=== PATIENT | female | born 1955 | race Caucasian/White ===

== ENCOUNTER 2023-01-11 13:15 | Outpatient (AMB) | payer MEDICARE, SELFPAY ==
--- NOTE | 2023-01-11 13:18 | A.OFFVIS_ITS ---
Intake Vital Signs 3 01/11/23 13:21 Height 4 ft 11 in Weight 195 lb BMI 39.4 BP 122/64 Blood Pressure Location Rt brachial Position Sitting Pulse 70 Pulse Source Pulse Oximeter Pulse Oximetry (%) 95 Oxygen Delivery Method Room Air Intake Visit Reasons: Dyspnea Furniture Polisher Required: No Private Tutors And Teachers: Private Tutors And Teachers offered & declined Accompanied by: Self / Same As Patient Allergies codeine Allergy (Severe, Verified 01/11/23 13:27) trouble breathing Imitrex Allergy (Severe, Uncoded 01/11/23 13:27) Anaphylaxis Medication List - Last Reconciled 01/11/23 by Anita Montiel LPN albuterol sulfate 2.5 mg inhalation Q6H PRN amlodipine 5 mg PO DAILY aspirin (Adult Aspirin Regimen) 81 mg PO DAILY atenolol 25 mg PO DAILY budesonide 180 mcg/actuation (Pulmicort Flexhaler) 2 inhalations inhalation BID citalopram 40 mg PO DAILY ezetimibe 10 mg PO DAILY hydrochlorothiazide 25 mg PO DAILY omeprazole 20 mg PO DAILY ropinirole 1 mg PO DAILY HPI Dyspnea 2 HPI0 Details Lucy is a pleasant 67 year old female, never smoker, with underlying GERD, HUMBERTO on CPAP, hypertension and coronary artery disease. She was referred by PCP for pulmonary evaluation after persistent cough and wheezing. She states these symptoms started at the end of July after a viral URI. She reports being evaluated multiple times at urgent care and the ED. She was evaluated in the ED at [facility] on 11/18/22 for dyspnea and wheezing, treated with duoneb and prednisone with significant improvement. CXR unremarkable. PCP did refer for PFT but patient unable to complete due to coughing fits, spirometry below. PCP placed her on pulmicort and albuterol MDI about 6 weeks ago with suboptimal effect. She states coughing has resolved but still with dyspnea on exertion, such a hills and stairs and takes longer to recover. She denies any personal history of respiratory conditions. Her mother and sister have a history of asthma. Denies any personal or family history of lung cancer. She denies any occupational exposures. She denies seasonal allergies. She has a h/o HUMBERTO and has been on CPAP x 40 years. She is under the care of [facility] sleep medicine and her [employer] company is [employer]. Of note, she does report BLE edema, denies orthopnea and states an echo from approximately 3 years ago revealed mild cardiac insufficiency. She is currently under the care of cardiology at [facility] and is supposed to have a repeat echo in the near future. [facility] Social History (Updated 01/11/23 @ 13:31 by Anita Montiel LPN) Patient Tobacco Use Status: Never used Tobacco Review of Systems Const Denies chills, Denies excessive sweating, Denies fever(s), Denies headache(s) and Denies night sweats Eyes Denies dry eyes, Denies irritation and Denies itchy eyes ENT Reports Normal hearing present, Denies headache(s), Denies nasal congestion, Denies nasal discharge, Denies post nasal drip and Denies sore throat Card Denies chest pain, Denies chest pain at rest, Denies chest pain with activity, Denies claudication, Reports leg edema, Reports dyspnea on exertion, Denies orthopnea and Denies paroxysmal nocturnal dyspnea Resp Denies chest congestion, Denies cough, Denies excessive phlegm production, Denies pain on inspiration, Denies pain with cough, Reports dyspnea on exertion, Denies stridor and Denies wheezing Musc Denies myalgias Neuro Reports Normal hearing present and Denies headache(s) Endo Denies excessive sweating Berny/Lymph Denies lymphadenopathy Aller/Immun Denies itchy eyes, Denies seasonal rhinorrhea and Denies wheezing Physical Exam Vital Signs: Last Vital Signs Pulse 70 01/11/23 13:21 BP 122/64 01/11/23 13:21 Pulse Ox 95 01/11/23 13:21 Oxygen Delivery Method Room Air 01/11/23 13:21 BMI result Body Mass Index 39.4 Const General: cooperative, healthy appearing, comfortable, no acute distress, well developed and alert Nutritional Appearance: obese Orientation/consciousness: patient oriented x3 Limitations: no limitations HEENT Head: Yes normal to inspection, Yes normocephalic and Yes atraumatic Ears: hearing grossly normal bilaterally and external ears normal Eyes General: appearance normal, both eyes and all related structures Eyelids: Yes eyelids normal Sclerae: sclerae normal EOM: EOMs intact bilaterally Neck Neck: Yes normal visual inspection and Yes no lymphadenopathy Lymphatic: no lymphadenopathy noted Chest Chest palpation & inspection: normal inspection of the chest Resp Effort & Inspection: normal respiratory effort, able to speak in complete sentences, no audible wheezes, no cough, no stridor, not tachypneic, no tripod positioning and no use of accessory muscles Auscultation: clear to auscultation bilaterally Cardio Jugular venous distension: no JVD Rate: regular rate Rhythm: regular rhythm Skin Other: warm, dry General skin exam: no rashes or lesions noted Neuro General: patient oriented x3 Cranial nerves: Yes Normal hearing present Cognition (Neuro): normal cognition Gait exam (Neuro): Normal gait present Extrem Other: 1-2+ pitting BLE, R>L with erythema and warmth of the RLE. reportedly US negative for DVT, awaiting referral to vascular. General: Yes normal to inspection and Yes capillary refill normal Psych Appearance: grossly normal and well kempt Speech and movement: Normal speech and movement present and Clear speech present Affect: normal affect Attitude: cooperative Thought process: Normal thought process present Thought content: Normal thought content present Insight: Good insight present (Psych) Judgement: Good judgement present (Psych) Office Procedures 6 Minute Walk Time:: 14:08 SPO2 % at rest: 95 Pulse at rest: 60 SPO2 % during excercise: 92 Pulse during excercise: 78 SPO2 % after excercise: 95 Pulse after excercise: 69 Distance in yards walked: 1,500 Jeff Score: 8 Supplemental Oxygen: Patient walked unassisted on level ground. Patient maintained O2 saturation at 92% or greater for the entire walk. She was short of breath for much of the walk and patient reports this happens when she walks anytime. Patient did not require the use of supplemental O2 during the 6 minute walk. 73392 - 6 Minute Walk Results Reviewed Results Reviewed: Assessment & Plan Assessment & Plan (1) Asthma: Code(s): J45.909 - Unspecified asthma, uncomplicated (2) Dyspnea on exertion: Code(s): R06.09 - Other forms of dyspnea Plan Lucy's symptoms are likely multifactorial with contribution from pulmonary and deconditioning/obesity etiologies. Spirometry revealed mild restrictive defect and significant response to bronchodilation but patient had difficulty performing spirometry and could not continue with lung volumes or DLCO due to persistent cough. Patient now with improvements in cough and would like to attempt PFT again. Will enter this order. 6MWT was performed and there is no need for supplemental oxygen at this time. Patient has been on Pulmicort for the past 6 weeks with resolution in cough but still with suboptimal response. Will switch to Breo. Importance of oral hygiene reviewed. Patient aware if she is unable to obtain medication to contact our office. All questions were answered and patient is in agreement of plan. Will follow up to review results of PFT and response to Breo. Orders: Orders 2 AMB 6 minute walk Today J45.909 - Unspecified asthma, uncomplicated, R06.09 - Other forms of dyspnea PFT pulmonary function test Today J45.909 - Unspecified asthma, uncomplicated Medications: New 2 fluticasone furoate-vilanterol 100-25 mcg/dose (Breo Ellipta) 1 inh inhalation DAILY 60 ea 3RF Coding Level of Care Code New Pt Level 4 (76131) Diagnoses Asthma J45.909 Dyspnea on exertion R06.09 CPT Codes Coding ([id number])
[2023-01-11 13:21] VITALS: BP 122/64; PULSE 70; O2SAT 95; BMI 39.4
--- NOTE | 2023-01-11 14:56 | MHC.OFFVIS ---
Intake Vital Signs 01/11/23 13:21 Height 4 ft 11 in Weight 195 lb BMI 39.4 BP 122/64 Blood Pressure Location Rt brachial Position Sitting Pulse 70 Pulse Source Pulse Oximeter Pulse Oximetry (%) 95 Oxygen Delivery Method Room Air Intake Visit Reasons: Dyspnea Allergies codeine Allergy (Severe, Verified 01/11/23 13:27) trouble breathing Imitrex Allergy (Severe, Uncoded 01/11/23 13:27) Anaphylaxis Medication List - Last Reconciled 01/11/23 by Anita Montiel LPN albuterol sulfate 2.5 mg inhalation Q6H PRN amlodipine 5 mg PO DAILY aspirin (Adult Aspirin Regimen) 81 mg PO DAILY atenolol 25 mg PO DAILY budesonide 180 mcg/actuation (Pulmicort Flexhaler) 2 inhalations inhalation BID citalopram 40 mg PO DAILY ezetimibe 10 mg PO DAILY hydrochlorothiazide 25 mg PO DAILY omeprazole 20 mg PO DAILY ropinirole 1 mg PO DAILY [facility] Social History (Updated 01/11/23 @ 13:31 by Anita Montiel LPN) Patient Tobacco Use Status: Never used Tobacco Physical Exam Vital Signs: Last Vital Signs Pulse 70 01/11/23 13:21 BP 122/64 01/11/23 13:21 Pulse Ox 95 01/11/23 13:21 Oxygen Delivery Method Room Air 01/11/23 13:21 BMI result Body Mass Index 39.4 Office Procedures 6 Minute Walk Time:: 14:08 SPO2 % at rest: 95 Pulse at rest: 60 SPO2 % during excercise: 92 Pulse during excercise: 78 SPO2 % after excercise: 95 Pulse after excercise: 69 Distance in yards walked: 1,500 Jeff Score: 8 Supplemental Oxygen: Patient walked unassisted on level ground. Patient maintained O2 saturation at 92% or greater for the entire walk. She was short of breath for much of the walk and patient reports this happens when she walks anytime. Patient did not require the use of supplemental O2 during the 6 minute walk. 97611 - 6 Minute Walk Assessment & Plan Assessment & Plan Orders: Orders AMB 6 minute walk Today J45.909 - Unspecified asthma, uncomplicated, R06.09 - Other forms of dyspnea Medications: New fluticasone furoate-vilanterol 100-25 mcg/dose (Breo Ellipta) 1 inh inhalation DAILY 60 ea 3RF Quality Reporting (2019) Adult ([facility] [birth year]) Body Mass Index: 39.4 Coding CPT Codes Coding ([id number])
[2023-01-11 15:03] VITALS: PULSE 60; O2SAT 95
== END 2023-01-11 14:21 | disposition home or self-care (01) ==
LOC: HO.HPSW 13:15
PROVIDERS: PCP Physician Assistant Medical; Visit Provider Nurse Practitioner Family
DX: J45.909 Unspecified asthma, uncomplicated (principal); R06.09 Other forms of dyspnea
CPT/HCPCS: 94618; 99204

== ENCOUNTER → 2023-01-11 13:15 | Outpatient (BNVA) | payer MEDICARE, SELFPAY | PROVIDERS: PCP Physician Assistant Medical; Visit Provider Nurse Practitioner Family | DX: J45.909 Unspecified asthma, uncomplicated (principal); R06.09 Other forms of dyspnea | CPT/HCPCS: 94618; 99202 ==

== ENCOUNTER 2023-02-24 13:30 | Outpatient (REF) | payer MEDICARE, SELFPAY ==
--- NOTE | 2023-02-24 14:18 | PFT_ITS ---
Indication: Asthma Spirometry [FEV1 to FVC 85%; FEV1 1.54 L which is 111% predicted; FVC 122 L which is 107% predicted. No significant response to bronchodilators noted. Maximum voluntary ventilation 79% predicted] Lung Volumes [Total capacity 70% predicted; expiratory reserve volume 20% predicted Diffusion Capacity [DLCO 73% predicted] Comparisons [None] Interpretation [No obstructive ventilatory defects. No significant response to bronchodilators noted. However, there was a trend. Mild decrease in the maximum voluntary ventilation. The patient also has a restrictive ventilatory defect consistent with mild restrictive lung disease. The patient also has a decrease in the expiratory reserve volume secondary to an elevated BMI. Patient also has a mild diffusion impairment. If asthma is in the differential methacholine challenge may be helpful in assessing for hyperactive airways. Clinical correlation warranted.] [facility]
== END 2023-02-24 13:31 | disposition home or self-care (01) ==
LOC: HO.RESP 13:30
PROVIDERS: PCP Physician Assistant Medical; Visit Provider Nurse Practitioner Family
DX: J45.909 Unspecified asthma, uncomplicated (principal)
CPT/HCPCS: 94010; 94727

== ENCOUNTER → 2023-02-24 14:18 | Outpatient (BNV) | payer MEDICARE, SELFPAY | PROVIDERS: PCP Physician Assistant Medical; Visit Provider Hospitalist | DX: J45.909 Unspecified asthma, uncomplicated (principal) | CPT/HCPCS: 94060; 94727; 94729 ==

== ENCOUNTER 2023-03-01 09:29 | Outpatient (AMB) | payer MEDICARE, SELFPAY ==
[2023-03-01 09:46] VITALS: BP 126/68; PULSE 70; O2SAT 97; BMI 39.8
--- NOTE | 2023-03-01 09:46 | MHC.OFFVIS ---
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 Field Adjuster: Field Adjuster offered & declined Accompanied by: Self / Same As Patient Allergies codeine Allergy (Severe, Verified 03/01/23 09:51) trouble breathing Imitrex Allergy (Severe, Uncoded 03/01/23 09:51) Anaphylaxis Medication List - Last Reconciled 03/01/23 by Anita Montiel LPN albuterol sulfate 2.5 mg inhalation Q6H PRN amlodipine 5 mg PO DAILY aspirin (Adult Aspirin Regimen) 81 mg PO DAILY atenolol 25 mg PO DAILY citalopram 40 mg PO DAILY ezetimibe 10 mg PO DAILY fluticasone furoate-vilanterol 100-25 mcg/dose (Breo Ellipta) 1 inh inhalation DAILY hydrochlorothiazide 25 mg PO DAILY omeprazole 20 mg PO DAILY ropinirole 1 mg PO DAILY HPI dyspnea 6 week f/u HPI Details Lucy is a pleasant 67 year old female, never smoker, with underlying asthma, GERD, HUMBERTO on CPAP, hypertension and coronary artery disease. She was referred by PCP for pulmonary evaluation after persistent cough and wheezing. She states these symptoms started at the end of July after a viral URI. PCP did refer for PFT but patient unable to complete due to coughing fits, spirometry below. PCP placed her on pulmicort and albuterol MDI about 6 weeks ago with suboptimal effect. At the last visit, she was switched from Pulmicort to Breo. Today she presents to review response to Breo as well as PFT results. She reports significant improvements since starting Breo. She denies any respiratory symptoms. [facility] Social History (Updated 03/01/23 @ 09:53 by Anita Montiel LPN) Patient Tobacco Use Status: Never used Tobacco Review of Systems Const Denies chills, Denies excessive sweating, Denies fever(s), Denies headache(s) and Denies night sweats Eyes Denies dry eyes, Denies irritation and Denies itchy eyes ENT Reports Normal hearing present, Denies headache(s), Denies nasal congestion, Denies nasal discharge, Denies post nasal drip and Denies sore throat Card Denies chest pain, Denies chest pain at rest, Denies chest pain with activity, Denies claudication, Reports leg edema, Denies orthopnea and Denies paroxysmal nocturnal dyspnea Resp Denies chest congestion, Denies cough, Denies excessive phlegm production, Denies pain on inspiration, Denies pain with cough, Denies stridor and Denies wheezing Musc Denies myalgias Neuro Reports Normal hearing present and Denies headache(s) Endo Denies excessive sweating Berny/Lymph Denies lymphadenopathy Aller/Immun Denies itchy eyes, Denies seasonal rhinorrhea and Denies wheezing Physical Exam Vital Signs: Last Vital Signs Pulse 70 03/01/23 09:46 BP 126/68 03/01/23 09:46 Pulse Ox 97 03/01/23 09:46 Oxygen Delivery Method Room Air 03/01/23 09:46 BMI result Body Mass Index 39.8 Const General: cooperative, healthy appearing, comfortable, no acute distress, well developed and alert Nutritional Appearance: obese Orientation/consciousness: patient oriented x3 Limitations: no limitations HEENT Head: Yes normal to inspection, Yes normocephalic and Yes atraumatic Ears: hearing grossly normal bilaterally and external ears normal Eyes General: appearance normal, both eyes and all related structures Eyelids: Yes eyelids normal Sclerae: sclerae normal EOM: EOMs intact bilaterally Neck Neck: Yes normal visual inspection and Yes no lymphadenopathy Lymphatic: no lymphadenopathy noted Chest Chest palpation & inspection: normal inspection of the chest Resp Effort & Inspection: normal respiratory effort, able to speak in complete sentences, no audible wheezes, no cough, no stridor, not tachypneic, no tripod positioning and no use of accessory muscles Auscultation: clear to auscultation bilaterally Cardio Jugular venous distension: no JVD Rate: regular rate Rhythm: regular rhythm Skin Other: warm, dry General skin exam: no rashes or lesions noted Neuro General: patient oriented x3 Cranial nerves: Yes Normal hearing present Cognition (Neuro): normal cognition Gait exam (Neuro): Normal gait present Extrem Other: 1-2+ pitting BLE, R>L with erythema and warmth of the RLE. reportedly US negative for DVT, awaiting referral to vascular. General: Yes normal to inspection and Yes capillary refill normal Psych Appearance: grossly normal and well kempt Speech and movement: Normal speech and movement present and Clear speech present Affect: normal affect Attitude: cooperative Thought process: Normal thought process present Thought content: Normal thought content present Insight: Good insight present (Psych) Judgement: Good judgement present (Psych) Results Reviewed Results Reviewed: Assessment & Plan Assessment & Plan (1) Asthma: Code(s): J45.909 - Unspecified asthma, uncomplicated (2) Dyspnea on exertion: Code(s): R06.09 - Other forms of dyspnea (3) Restrictive lung disease: Code(s): J98.4 - Other disorders of lung (4) Environmental allergies: Code(s): Z91.09 - Other allergy status, other than to drugs and biological substances Plan Reviewed PFT which did not reveal an obstructive ventilatory defects and there was no significant response to bronchodilators noted, except in small to medium airways.There was a restrictive ventilatory defect consistent with mild restrictive lung disease with mild decrease in DLCO. Prior CXR unremarkable, however with restrictive findings, would like to send for chest CT to evaluate for parenchymal conditions. Since patient has been placed on Breo, she reports respiratory symptoms have been well controlled. Will continue current regimen. Patient noted to have wheezing after exposure to a wreath and interested in allergy testing. Will send for RAST. All questions were answered and patient is in agreement of plan. Will follow up to review results of chest CT and RAST. Orders: Orders CT chest wo IV con Today J98.4 - Other disorders of lung, R06.09 - Other forms of dyspnea Rast Allergen Today Z91.09 - Other allergy status, other than to drugs and biological substances Complete Blood Count Auto Diff Today J45.909 - Unspecified asthma, uncomplicated Immunoglobulin E Today Z91.09 - Other allergy status, other than to drugs and biological substances Medications: Refilled fluticasone furoate-vilanterol 100-25 mcg/dose (Breo Ellipta) 1 inh inhalation DAILY 60 ea 3RF Coding Level of Care Code Est Pt Level 4 (61929) Diagnoses Asthma J45.909 Dyspnea on exertion R06.09 Restrictive lung disease J98.4 Environmental allergies Z91.09
== END 2023-03-01 10:20 | disposition home or self-care (01) ==
PROVIDERS: PCP Physician Assistant Medical; Visit Provider Nurse Practitioner Family
DX: J45.909 Unspecified asthma, uncomplicated (principal); R06.09 Other forms of dyspnea; J98.4 Other disorders of lung; Z91.09 Other allergy status, other than to drugs and biological substances
CPT/HCPCS: 99214

== ENCOUNTER → 2023-03-01 09:29 | Outpatient (BNVA) | payer MEDICARE, SELFPAY | PROVIDERS: PCP Physician Assistant Medical; Visit Provider Nurse Practitioner Family | DX: J45.909 Unspecified asthma, uncomplicated (principal); J98.4 Other disorders of lung; R06.09 Other forms of dyspnea; Z91.09 Other allergy status, other than to drugs and biological substances | CPT/HCPCS: 36415; 85025; 86003; 99212 ==

== ENCOUNTER 2023-03-01 10:20 | Outpatient (REF) | payer MEDICARE, SELFPAY ==
[2023-03-01 11:37] LABS: MANUAL DIFF FLAG NO
[2023-03-01 11:46] LABS: Basophils Absolute Auto 0.1 X10*3/uL (0.0-0.2); Basophils Percent Auto 0.8 % (0-2); Eosinophils Absolute Auto 0.3 X10*3/uL (0.0-0.4); Eosinophils Percent Auto 3.4 % (0-4); Hematocrit 41.7 % (37.0-47.0); Hemoglobin 13.7 g/dl (12.0-16.0); Imm Gran Abs Auto 0.04 X10*3/uL (0.00-0.03); Imm Gran Pct Auto 0.4 % (0.0-0.4); Lymphocytes Absolute Auto 3.3 X10*3/uL (1.2-4.9); Lymphocytes Percent Auto 33.5 % (20-40); Mean Corpuscular HGB Conc 32.9 g/dl (31.0-35.0); Mean Corpuscular Hemoglobin 30.2 pg (27.0-33.0); Mean Corpuscular Volume 91.9 fL (80.0-98.0); Mean Platelet Volume 9.5 fL (9.4-12.3); Monocytes Absolute Auto 0.6 X10*3/uL (0.1-1.2); Neutrophils Absolute Auto 5.6 x10*3/uL (2.0-8.3); Neutrophils Percent Auto 55.9 % (45-73); Platelet Count 253 X10*3/uL (160-400); Red Blood Count 4.54 X10*6/uL (4.20-5.50); Red Cell Distribution Width 13.3 % (11.0-16.0); White Blood Count 9.9 X10*3/uL (4.8-10.8)
== END 2023-03-01 10:21 | disposition home or self-care (01) ==
LOC: HO.WFDLDS 10:20
PROVIDERS: Visit Provider Nurse Practitioner Family
DX: Z13.89 Encounter for screening for other disorder (principal)
CPT/HCPCS: 36415; 82785; 85025

== ENCOUNTER 2023-03-24 15:08 | Outpatient (REF) | payer MEDICARE, SELFPAY ==
--- NOTE | ~2023-03-24 | CT_ITS ---
EXAMINATION: CT CHEST WITHOUT CONTRAST CLINICAL INFORMATION: Restrictive lung disease. COMPARISON: None available. TECHNIQUE: Multidetector volumetric CT imaging of the chest was done. Axial MIP volume rendering provided. Sagittal and coronal reformatted images were obtained. This CT examination was performed using dose optimization techniques as appropriate, variously including the following: *Automated exposure control *Adjustment of mA and/or kV according to patient size (this includes techniques or standardized protocols for targeted exams where dose is matched to indication/reason for exam; i.e. extremities or head) *Use of iterative reconstruction technique DLP: 169 mGy-cm FINDINGS: LUNGS: At the posteromedial right base (10:84), a 3 mm benign, pleural-based lymph node is seen. Within the anterior segment of the right upper lobe (10:75), a 1 mm noncalcified nodule is seen. At the posterolateral left base (10:102), a 1 mm noncalcified nodule is seen. There is no mass, infiltrate or groundglass opacity. No generalized increase is seen in peripheral interlobular septal markings. No bleb or bullous formation is seen. No mosaic attenuation or air trapping is noted. There is no generalized small airway thickening. There is no bronchiectasis. The central airways appear patent. MEDIASTINUM: The mediastinum is normal. CORONARY ARTERY CALCIFICATION: Very mild. PLEURA: There is no pleural effusion. No pleural mass or thickening. AXILLA: No lymphadenopathy. UPPER ABDOMEN: Unremarkable. OSSEOUS STRUCTURES: There is multi-level thoracolumbar spondylosis. No acute or aggressive osseous finding is noted. CT/CT chest wo IV con IMPRESSION: 1. There are 2 nonspecific, noncalcified 1 mm nodules within the left lung. These are of doubtful clinical significance. According to the UPDATED 2017 Fleischner Society recommendations, the advised follow-up imaging for solid nodules < 6 mm is: LOW RISK PATIENT: No routine follow-up. HIGH RISK PATIENT: Optional CT at 12 months. 2. No mass, infiltrate or groundglass opacity is seen. 3. There is no generalized increase in peripheral interlobular septal markings. No bronchiectasis or small airway thickening is noted. 4. There is no thoracic lymphadenopathy or pleural effusion. 5. There are degenerative changes of the spine. No acute or aggressive osseous lesion is seen. Fleischner guidelines were followed.
== END 2023-03-24 15:09 | disposition home or self-care (01) ==
LOC: HO.CT 15:08
PROVIDERS: PCP Internal Medicine; Visit Provider Nurse Practitioner Family
DX: J98.4 Other disorders of lung (principal); R06.09 Other forms of dyspnea
CPT/HCPCS: 71250

== ENCOUNTER 2023-04-18 09:39 | Outpatient (AMB) | payer MEDICARE, SELFPAY ==
[2023-04-18 09:41] VITALS: BP 122/70; PULSE 73; O2SAT 97
--- NOTE | 2023-04-18 09:41 | MHC.OFFVIS ---
Intake Vital Signs 04/18/23 09:41 Weight 196 lb BP 122/70 Blood Pressure Location Lt brachial Position Sitting Pulse 73 Pulse Source Pulse Oximeter Pulse Oximetry (%) 97 Oxygen Delivery Method Room Air Intake Visit Reasons: dyspnea : 6 week f/u Allergies codeine Allergy (Severe, Verified 04/18/23 09:44) trouble breathing Imitrex Allergy (Severe, Uncoded 04/18/23 09:44) Anaphylaxis Medication List - Last Reconciled 04/18/23 by Tennille Doshi LPN albuterol sulfate 2.5 mg inhalation Q6H PRN albuterol sulfate 90 mcg/actuation (Ventolin HFA) 2 puffs inhalation Q4-6H PRN amlodipine 5 mg PO DAILY aspirin (Adult Aspirin Regimen) 81 mg PO DAILY atenolol 25 mg PO DAILY citalopram 40 mg PO DAILY ezetimibe 10 mg PO DAILY fluticasone furoate-vilanterol 100-25 mcg/dose (Breo Ellipta) 1 inh inhalation DAILY hydrochlorothiazide 25 mg PO DAILY omeprazole 20 mg PO DAILY ropinirole 1 mg PO DAILY HPI dyspnea : 6 week f/u HPI Details Lucy is a pleasant 67 year old female, never smoker, with underlying asthma, GERD, HUMBERTO on CPAP, hypertension and coronary artery disease. She has been using Breo for the past 3 months and reports good control of respiratory symptoms. She reports using albuterol MDI QHS recommended by sleep provider, otherwise uses intermittently. She is under the care of sleep medicine through [facility] and her [employer]. She did have exposure to a trigger last week where she required her nebulizer x 5 days but symptoms are back to baseline. Since the last visit, she has been evaluated by vascular and recommended wearing compression stockings. She reports using them consistently with improvements in BLE. She also reports follow up with cardiology scheduled in May. Today she presents to review chest CT and RAST. [facility] Social History (Updated 03/01/23 @ 09:53 by Anita Montiel LPN) Patient Tobacco Use Status: Never used Tobacco Review of Systems Const Denies chills, Denies excessive sweating, Denies fever(s), Denies headache(s) and Denies night sweats Eyes Denies dry eyes, Denies irritation and Denies itchy eyes ENT Reports Normal hearing present, Denies headache(s), Denies nasal congestion, Denies nasal discharge, Denies post nasal drip and Denies sore throat Card Denies chest pain, Denies chest pain at rest, Denies chest pain with activity, Denies claudication, Reports leg edema, Denies orthopnea and Denies paroxysmal nocturnal dyspnea Resp Denies chest congestion, Denies cough, Denies excessive phlegm production, Denies pain on inspiration, Denies pain with cough, Denies stridor and Denies wheezing Musc Denies myalgias Neuro Reports Normal hearing present and Denies headache(s) Endo Denies excessive sweating Berny/Lymph Denies lymphadenopathy Aller/Immun Denies itchy eyes, Denies seasonal rhinorrhea and Denies wheezing Physical Exam Vital Signs: Last Vital Signs Pulse 73 04/18/23 09:41 BP 122/70 04/18/23 09:41 Pulse Ox 97 04/18/23 09:41 Oxygen Delivery Method Room Air 04/18/23 09:41 Const General: cooperative, healthy appearing, comfortable, no acute distress, well developed and alert Nutritional Appearance: obese Orientation/consciousness: patient oriented x3 Limitations: no limitations HEENT Head: Yes normal to inspection, Yes normocephalic and Yes atraumatic Ears: hearing grossly normal bilaterally and external ears normal Eyes General: appearance normal, both eyes and all related structures Eyelids: Yes eyelids normal Sclerae: sclerae normal EOM: EOMs intact bilaterally Neck Neck: Yes normal visual inspection and Yes no lymphadenopathy Lymphatic: no lymphadenopathy noted Chest Chest palpation & inspection: normal inspection of the chest Resp Effort & Inspection: normal respiratory effort, able to speak in complete sentences, no audible wheezes, no cough, no stridor, not tachypneic, no tripod positioning and no use of accessory muscles Auscultation: clear to auscultation bilaterally Cardio Jugular venous distension: no JVD Rate: regular rate Rhythm: regular rhythm Skin Other: warm, dry General skin exam: no rashes or lesions noted Neuro General: patient oriented x3 Cranial nerves: Yes Normal hearing present Cognition (Neuro): normal cognition Gait exam (Neuro): Normal gait present Extrem General: Yes normal to inspection and Yes capillary refill normal Psych Appearance: grossly normal and well kempt Speech and movement: Normal speech and movement present and Clear speech present Affect: normal affect Attitude: cooperative Thought process: Normal thought process present Thought content: Normal thought content present Insight: Good insight present (Psych) Judgement: Good judgement present (Psych) Results Reviewed Results Reviewed: [address] [address] [address] Scan Report Signed Patient: Lucy Lindquist MR#: [id number] : 1955 Acct:[id number] Age/Sex: 67 / F ADM Date: 03/24/23 Loc: HO.CT Attending Dr: Arlene Marques NP Ordering Physician: Arlene Marques NP Date of Service: 03/24/23 Procedure(s): CT chest wo IV con Accession Number(s): [id number] cc: Jagdeep Bajwa; Arlene Marques NP~ EXAMINATION: CT CHEST WITHOUT CONTRAST CLINICAL INFORMATION: Restrictive lung disease. COMPARISON: None available. TECHNIQUE: Multidetector volumetric CT imaging of the chest was done. Axial MIP volume rendering provided. Sagittal and coronal reformatted images were obtained. This CT examination was performed using dose optimization techniques as appropriate, variously including the following: *Automated exposure control *Adjustment of mA and/or kV according to patient size (this includes techniques or standardized protocols for targeted exams where dose is matched to indication/reason for exam; i.e. extremities or head) *Use of iterative reconstruction technique DLP: 169 mGy-cm FINDINGS: LUNGS: At the posteromedial right base (10:84), a 3 mm benign, pleural-based lymph node is seen. Within the anterior segment of the right upper lobe (10:75), a 1 mm noncalcified nodule is seen. At the posterolateral left base (10:102), a 1 mm noncalcified nodule is seen. There is no mass, infiltrate or groundglass opacity. No generalized increase is seen in peripheral interlobular septal markings. No bleb or bullous formation is seen. No mosaic attenuation or air trapping is noted. There is no generalized small airway thickening. There is no bronchiectasis. The central airways appear patent. MEDIASTINUM: The mediastinum is normal. CORONARY ARTERY CALCIFICATION: Very mild. PLEURA: There is no pleural effusion. No pleural mass or thickening. AXILLA: No lymphadenopathy. UPPER ABDOMEN: Unremarkable. OSSEOUS STRUCTURES: There is multi-level thoracolumbar spondylosis. No acute or aggressive osseous finding is noted. CT/CT chest wo IV con IMPRESSION: 1. There are 2 nonspecific, noncalcified 1 mm nodules within the left lung. These are of doubtful clinical significance. According to the UPDATED 2017 Fleischner Society recommendations, the advised follow-up imaging for solid nodules < 6 mm is: LOW RISK PATIENT: No routine follow-up. HIGH RISK PATIENT: Optional CT at 12 months. 2. No mass, infiltrate or groundglass opacity is seen. 3. There is no generalized increase in peripheral interlobular septal markings. No bronchiectasis or small airway thickening is noted. 4. There is no thoracic lymphadenopathy or pleural effusion. 5. There are degenerative changes of the spine. No acute or aggressive osseous lesion is seen. Fleischner guidelines were followed. Dictated By: Reggie Fritz MD Signed By: <Electronically signed by Reggie Fritz MD in OV> 03/31/23 1245 Assessment & Plan Assessment & Plan (1) Asthma: Code(s): J45.909 - Unspecified asthma, uncomplicated (2) Dyspnea on exertion: Code(s): R06.09 - Other forms of dyspnea (3) Restrictive lung disease: Code(s): J98.4 - Other disorders of lung (4) Environmental allergies: Code(s): Z91.09 - Other allergy status, other than to drugs and biological substances (5) Multiple pulmonary nodules: Code(s): R91.8 - Other nonspecific abnormal finding of lung field Plan Reviewed CT which revealed bilateral pulmonary nodules, <3mm. Will send for repeat imaging to assess stability in one year. RAST negative. Patient reports good control of respiratory symptoms on Breo, advised to continue and will refill albuterol for nebulizer. Patient did have mild decrease of DLCO on PFT, with no findings of parenchymal disease on CT. Advised to follow up with cardiology as she is due for an electrocardiogram. All questions were answered and patient is in agreement of plan. Will follow up in 6 months or sooner if needed. Orders: Orders CT chest wo IV con 11 Months R91.8 - Other nonspecific abnormal finding of lung field Medications: New albuterol sulfate 2.5 mg (3 mL) inhalation Q6H PRN 180 mL 2RF shortness of breath or wheezing Coding Level of Care Code Est Pt Level 4 (82608) Diagnoses Asthma J45.909 Dyspnea on exertion R06.09 Restrictive lung disease J98.4 Environmental allergies Z91.09 Multiple pulmonary nodules R91.8
== END 2023-04-18 10:16 | disposition home or self-care (01) ==
PROVIDERS: PCP Physician Assistant Medical; Visit Provider Nurse Practitioner Family
DX: J45.909 Unspecified asthma, uncomplicated (principal); R06.09 Other forms of dyspnea; J98.4 Other disorders of lung; Z91.09 Other allergy status, other than to drugs and biological substances; R91.8 Other nonspecific abnormal finding of lung field
CPT/HCPCS: 99214

== ENCOUNTER → 2023-04-18 09:39 | Outpatient (BNVA) | payer MEDICARE, SELFPAY | PROVIDERS: PCP Physician Assistant Medical; Visit Provider Nurse Practitioner Family | DX: J45.909 Unspecified asthma, uncomplicated (principal); R06.09 Other forms of dyspnea; J98.4 Other disorders of lung; R91.8 Other nonspecific abnormal finding of lung field; Z91.09 Other allergy status, other than to drugs and biological substances | CPT/HCPCS: 99212 ==

== ENCOUNTER 2023-07-05 08:22 | Outpatient (AMB) | payer MEDICARE, SELFPAY ==
--- NOTE | 2023-07-05 08:29 | A.OFFVIS_ITS ---
Intake Vital Signs 07/05/23 08:30 Height 4 ft 11 in Weight 195 lb BMI 39.4 Pulse 78 Pulse Source Pulse Oximeter Pulse Oximetry (%) 97 Oxygen Delivery Method Room Air Intake Visit Reasons: wheezing/cough Analysis Mgr Required: No Automatic Spinning Lathe Operator: Automatic Spinning Lathe Operator offered & declined Accompanied by: Self / Same As Patient Allergies codeine Allergy (Severe, Verified 07/05/23 08:33) trouble breathing Imitrex Allergy (Severe, Uncoded 04/18/23 09:44) Anaphylaxis Medication List - Last Reconciled 07/05/23 by Anita Montiel LPN albuterol sulfate 2.5 mg (3 mL) inhalation Q6H PRN albuterol sulfate 90 mcg/actuation (Ventolin HFA) 2 puffs inhalation Q4-6H PRN amlodipine 5 mg PO DAILY aspirin (Adult Aspirin Regimen) 81 mg PO DAILY atenolol 25 mg PO DAILY citalopram 40 mg PO DAILY ezetimibe 10 mg PO DAILY fluticasone furoate-vilanterol 100-25 mcg/dose (Breo Ellipta) 1 inh inhalation DAILY hydrochlorothiazide 25 mg PO DAILY omeprazole 20 mg PO DAILY ropinirole 1.5 mg PO DAILY HPI wheezing/cough HPI Details Lucy is a pleasant 68 year old female, never smoker, with underlying asthma, GERD, HUMBERTO on CPAP, hypertension and coronary artery disease. She has been using Breo for the past 3 months and reports good control of respiratory symptoms. She reports using albuterol MDI QHS recommended by [facility] sleep medicine provider, otherwise uses infrequently. Today she presents for an acute visit. She reports exposure to an aerosol that triggered chest tightness, wheezing and worsening dyspnea on exertion. She reports occasional dry cough attributing to post nasal drip. She denies fevers, chills or sick contacts. She has been using her nebulizer more frequently the last two days with good effect, however relief does not last long. [facility] Social History (Updated 07/05/23 @ 08:35 by Anita Montiel LPN) Patient Tobacco Use Status: Never used Tobacco Smoked in Last 30 Days: No Review of Systems Const Denies chills, Denies excessive sweating, Denies fever(s), Denies headache(s) and Denies night sweats Eyes Denies dry eyes, Denies irritation and Denies itchy eyes ENT Reports Normal hearing present, Denies headache(s), Denies nasal congestion and Denies nasal discharge Card Denies chest pain, Denies chest pain at rest, Denies chest pain with activity, Denies claudication, Denies leg edema, Denies orthopnea and Denies paroxysmal nocturnal dyspnea Resp Denies chest congestion, Denies excessive phlegm production, Denies pain on inspiration, Denies pain with cough and Denies stridor Musc Denies myalgias Neuro Reports Normal hearing present and Denies headache(s) Endo Denies excessive sweating Berny/Lymph Denies lymphadenopathy Aller/Immun Denies itchy eyes and Denies seasonal rhinorrhea Physical Exam Vital Signs: Last Vital Signs Pulse 78 07/05/23 08:30 Pulse Ox 97 07/05/23 08:30 Oxygen Delivery Method Room Air 07/05/23 08:30 BMI result Body Mass Index 39.4 Const General: cooperative, healthy appearing, comfortable, no acute distress, well developed and alert Nutritional Appearance: obese Orientation/consciousness: patient oriented x3 Limitations: no limitations HEENT Head: Yes normal to inspection, Yes normocephalic and Yes atraumatic Ears: hearing grossly normal bilaterally and external ears normal Eyes General: appearance normal, both eyes and all related structures Eyelids: Yes eyelids normal Sclerae: sclerae normal EOM: EOMs intact bilaterally Neck Neck: Yes normal visual inspection and Yes no lymphadenopathy Lymphatic: no lymphadenopathy noted Chest Chest palpation & inspection: normal inspection of the chest Resp Other: diminished lung sounds, improved with duoneb Effort & Inspection: normal respiratory effort, able to speak in complete sentences, no audible wheezes, no cough, no stridor, not tachypneic, no tripod positioning and no use of accessory muscles Cardio Jugular venous distension: no JVD Rate: regular rate Rhythm: regular rhythm Skin Other: warm, dry General skin exam: no rashes or lesions noted Neuro General: patient oriented x3 Cranial nerves: Yes Normal hearing present Cognition (Neuro): normal cognition Gait exam (Neuro): Normal gait present Extrem General: Yes normal to inspection, Yes capillary refill normal, Yes no clubbing, cyanosis or edema and Yes no pedal edema Psych Appearance: grossly normal and well kempt Speech and movement: Normal speech and movement present and Clear speech present Affect: normal affect Attitude: cooperative Thought process: Normal thought process present Thought content: Normal thought content present Insight: Good insight present (Psych) Judgement: Good judgement present (Psych) Assessment & Plan Assessment & Plan (1) Asthma: Code(s): J45.909 - Unspecified asthma, uncomplicated (2) Dyspnea on exertion: Code(s): R06.09 - Other forms of dyspnea (3) Restrictive lung disease: Code(s): J98.4 - Other disorders of lung (4) Environmental allergies: Code(s): Z91.09 - Other allergy status, other than to drugs and biological substances (5) Multiple pulmonary nodules: Code(s): R91.8 - Other nonspecific abnormal finding of lung field Plan Lucy presents for an acute visit for worsening asthma control after exposure to chemical trigger. On exam patient with diminshed lung sounds, which improved significantly after nebulizer. At this time no antibiotics or prednisone is warranted. Advised patient to continue to use nebulizer and monitor symptoms. Also recommended to add flonase for post nasal drip. If worsen she is aware to call office or seek emergent care if she develops signs of respiratory distress. All questions were answered and patient is in agreement of plan. Will follow up for regularly scheduled appointment. Coding Level of Care Code Est Pt Level 4 (65449) Diagnoses Asthma J45.909 Dyspnea on exertion R06.09 Restrictive lung disease J98.4 Environmental allergies Z91.09 Multiple pulmonary nodules R91.8
[2023-07-05 08:30] VITALS: PULSE 78; O2SAT 97; BMI 39.4
== END 2023-07-05 09:01 | disposition home or self-care (01) ==
PROVIDERS: PCP Physician Assistant Medical; Visit Provider Nurse Practitioner Family
DX: J45.909 Unspecified asthma, uncomplicated (principal); R06.09 Other forms of dyspnea; J98.4 Other disorders of lung; Z91.09 Other allergy status, other than to drugs and biological substances; R91.8 Other nonspecific abnormal finding of lung field
CPT/HCPCS: 99214

== ENCOUNTER → 2023-07-05 08:22 | Outpatient (BNVA) | payer MEDICARE, SELFPAY | PROVIDERS: PCP Physician Assistant Medical; Visit Provider Nurse Practitioner Family | DX: J45.909 Unspecified asthma, uncomplicated (principal); J98.4 Other disorders of lung; R91.8 Other nonspecific abnormal finding of lung field; R06.09 Other forms of dyspnea; Z91.09 Other allergy status, other than to drugs and biological substances | CPT/HCPCS: 99212 ==

== ENCOUNTER 2023-10-04 09:32 | Outpatient (AMB) | payer MEDICARE, SELFPAY ==
[2023-10-04 09:37] VITALS: BP 122/80; PULSE 69; O2SAT 97; BMI 37.6
--- NOTE | 2023-10-04 09:37 | A.OFFVIS_ITS ---
Vital Signs 10/04/23 09:37 Height 4 ft 11 in Weight 186 lb BMI 37.6 BP 122/80 Blood Pressure Location Rt brachial Position Sitting Pulse 69 Pulse Source Pulse Oximeter Pulse Oximetry (%) 97 Oxygen Delivery Method Room Air Intake Visit Reasons: dyspea: 6 month f/u Allergies codeine Allergy (Severe, Verified 10/04/23 09:40) trouble breathing Imitrex Allergy (Severe, Uncoded 10/04/23 09:40) Anaphylaxis HPI HPI dyspea: 6 month f/u: Details: Lucy is a pleasant 68 year old female, never smoker, with underlying asthma, GERD, HUMBERTO on CPAP through [facility], hypertension and coronary artery disease. She has been using Breo with good control of respiratory symptoms, using albuterol MDI infrequently. She continues to report dyspnea on moderate exertion such as stairs, however contributes symptoms to BMI. Of note, she was recently diagnosed with DMII and started on Ozempic. Since initiating two weeks ago, she has lost a total of 9lbs. Today she presents for a routine follow up. She denies any urgent care visits or hospitalizations since the last visit. She reports post nasal drip that has been most bothersome with persistent hoarseness, minimally responsive to flonase. [facility] Social History Patient Tobacco Use Status: Never used Tobacco Review of Systems Const Denies chills, Denies excessive sweating, Denies fever(s), Denies headache(s) and Denies night sweats Eyes Denies dry eyes, Denies irritation and Denies itchy eyes ENT Reports Normal hearing present, Denies headache(s), Denies nasal congestion and Denies nasal discharge Card Denies chest pain, Denies chest pain at rest, Denies chest pain with activity, Denies claudication, Denies leg edema, Denies orthopnea and Denies paroxysmal nocturnal dyspnea Resp Denies chest congestion, Denies excessive phlegm production, Denies pain on inspiration, Denies pain with cough and Denies stridor Musc Denies myalgias Neuro Reports Normal hearing present and Denies headache(s) Endo Denies excessive sweating Berny/Lymph Denies lymphadenopathy Aller/Immun Denies itchy eyes and Denies seasonal rhinorrhea Physical Exam Vital Signs: Last Vital Signs Pulse 69 10/04/23 09:37 BP 122/80 10/04/23 09:37 Pulse Ox 97 10/04/23 09:37 Oxygen Delivery Method Room Air 10/04/23 09:37 BMI result Body Mass Index 37.6 Const General: cooperative, healthy appearing, comfortable, no acute distress, well developed and alert Nutritional Appearance: obese Orientation/consciousness: patient oriented x3 Limitations: no limitations HEENT Head: Yes normal to inspection, Yes normocephalic and Yes atraumatic Ears: hearing grossly normal bilaterally and external ears normal Eyes General: appearance normal, both eyes and all related structures Eyelids: Yes eyelids normal Sclerae: sclerae normal EOM: EOMs intact bilaterally Neck Neck: Yes normal visual inspection and Yes no lymphadenopathy Lymphatic: no lymphadenopathy noted Chest Chest palpation & inspection: normal inspection of the chest Resp Other: diminished lung sounds, improved with duoneb Effort & Inspection: normal respiratory effort, able to speak in complete sentences, no audible wheezes, no cough, no stridor, not tachypneic, no tripod positioning and no use of accessory muscles Cardio Jugular venous distension: no JVD Rate: regular rate Rhythm: regular rhythm Skin Other: warm, dry General skin exam: no rashes or lesions noted Neuro General: patient oriented x3 Cranial nerves: Yes Normal hearing present Cognition (Neuro): normal cognition Gait exam (Neuro): Normal gait present Extrem General: Yes normal to inspection, Yes capillary refill normal, Yes no clubbing, cyanosis or edema and Yes no pedal edema Psych Appearance: grossly normal and well kempt Speech and movement: Normal speech and movement present and Clear speech present Affect: normal affect Attitude: cooperative Thought process: Normal thought process present Thought content: Normal thought content present Insight: Good insight present (Psych) Judgement: Good judgement present (Psych) Assessment & Plan Assessment & Plan (1) Asthma: Code(s): J45.909 - Unspecified asthma, uncomplicated Category: Medical (2) Dyspnea on exertion: Code(s): R06.09 - Other forms of dyspnea Category: Medical (3) Restrictive lung disease: Code(s): J98.4 - Other disorders of lung Category: Medical (4) Environmental allergies: Code(s): Z91.09 - Other allergy status, other than to drugs and biological substances Category: Medical (5) Multiple pulmonary nodules: Code(s): R91.8 - Other nonspecific abnormal finding of lung field Category: Medical Plan Lucy reports good control of asthma on Breo and albuterol MDI, advised to continue. Will enter refills for Breo. She is working towards weight loss with diet changes and newly on Ozempic for recent dx of DMII. She is hopeful that she can continue this and improve overall activity. She notes post nasal drip has been most bothersome with no change with flonase. Will trial ipratropium and patient requesting referral to an it infrastructure project manager. Will enter referral to Dr. Nguyễn. Will follow up after chest CT in March or sooner if needed. All questions were answered and patient is in agreement of plan. Orders: Referrals Allergy & Immunology Referral Z91.09 - Other allergy status, other than to drugs and biological substances Medications: New ipratropium bromide administer into each nostril 2 sprays intranasal BID 30 mL 3RF Changed From fluticasone furoate-vilanterol 100-25 mcg/dose (Breo Ellipta) IQRA 1 1 inh inhalation DAILY 60 ea 3RF To fluticasone furoate-vilanterol 100-25 mcg/dose (Breo Ellipta) 1 inh inhalation DAILY 60 ea 3RF Coding Level of Care Code Est Pt Level 4 (06261) Diagnoses Asthma J45.909 Dyspnea on exertion R06.09 Restrictive lung disease J98.4 Environmental allergies Z91.09 Multiple pulmonary nodules R91.8
== END 2023-10-04 10:02 | disposition home or self-care (01) ==
PROVIDERS: PCP Physician Assistant Medical; Visit Provider Nurse Practitioner Family
DX: J45.909 Unspecified asthma, uncomplicated (principal); R06.09 Other forms of dyspnea; J98.4 Other disorders of lung; Z91.09 Other allergy status, other than to drugs and biological substances; R91.8 Other nonspecific abnormal finding of lung field
CPT/HCPCS: 99214

== ENCOUNTER → 2023-10-04 09:32 | Outpatient (BNVA) | payer MEDICARE, SELFPAY | PROVIDERS: PCP Physician Assistant Medical; Visit Provider Nurse Practitioner Family | DX: J45.909 Unspecified asthma, uncomplicated (principal); R06.09 Other forms of dyspnea; J98.4 Other disorders of lung; R91.8 Other nonspecific abnormal finding of lung field; Z91.09 Other allergy status, other than to drugs and biological substances | CPT/HCPCS: 99212 ==

== ENCOUNTER 2024-03-11 12:45 | Outpatient (REF) | payer MEDICARE, SELFPAY ==
--- OUTSIDE RECORDS SUMMARY | 2024-03-11 12:47 | XMS_ITS | Continuity of Care Document ---
Author Organization [facility] ter Address [address] [place] [id number]- Care Team Providers Care [employer] Name Role Phone Nasrin Barros Primary Care Physician Encounter [facility] [place] Date(s): 02/06/24 - 03/07/[address] [address]- Encounter Type: Triage Allergies, Adverse Reactions, Alerts Substance Criticality Severity Reaction Reaction Severity Status codeine Respiratory arrest A ctive Imitrex loc Active Immunizations Given and Recorded Vaccine Date Status Refusal Reason RSV vaccine preF3, recombinant 01/12/23 Recorded SARS-CoV-2(COVID-19)mRNA-LNP vac(ser445) 12/26/22 Recorded influenza virus vaccine, inactivated 12/12/22 Heri rded influenza virus vaccine, inactivated 12/13/21 Heri rded [id number] 12y+ bivalent booster vax 06/10/22 Recorded SARS-CoV-2 mRNA (lhnobsz-czbr-eugdx) vax 10/12/21 Recorded Medications Aerochamber See Instructions, # 1 kit, Maintenance, Use with inhaler, 08/16/22 12:33:00 PM EDT, Supply, 150, cm,08/16/22 12:12:00 EDT, Height Start Date: 08/16/22 Status: Ordered Quantity: 1.0 Unit: kit Repeat number: 1 Albuterol (Eqv-Ventolin HFA) 90 mcg/inh inhalation aerosol 1 puffs, Inhalation, 4 times a day, PRN NEEDED FOR WHEEZING, # 18 each, 0 Refills, Maintenance, 10/03/23 3:41:00 PM EDT, [id number], 50, 1 puffs Inhalation 4 times a day,PRN: NEEDED FOR WHEEZING, 150, cm, 09/28/23 10:38:00 EDT, Height, 88.5, kg, 08/14/23 0:53:00 EDT, Dry Weight Start Date: 10/03/23 Status: Ordered Quantity: 18.0 Unit: each Repeat number: 1 amLODIPine 5 mg oral tablet 1 tablet, By Mouth, Daily, # 90 tablet, 1 Refills, Maintenance, 01/02/24 12:13:00 PM EDT, [facility] [id number], 150, cm, 12/29/23 10:18:00 EDT, Height, 88.5, kg, 08/14/23 0:53:00 EDT, Dry Weight Start Date: 01/02/24 Status: Ordered Quantity: 90.0 Unit: tablet Repeat number: 1 aspirin 81 mg oral delayed release tablet 81 mg, 1, tablet, By Mouth, Daily, # 90 tablet, Refills 3, Tot. Refills 3, Maintenance, 01/30/23 2:39:00 PM EST, Route to Pharmacy Electronically, [facility] #[id number], Partial fill upon patient request if the prescription is for a schedule II opioid drug., 150, cm, 01/09/23 10:57:00 EDT, Height, 90,kg, 11/18/22 10:10:00 EDT, Dry Weight Start Date: 01/30/23 Status: Ordered Quantity: 90.0 Unit: tablet Repeat number: 4 atenolol 25 mg oral tablet 1, tablet, By Mouth, Daily, # 90 tablet, Refills 1, Maintenance, 02/04/24 7:36:00 AM EST, Route to Pharmacy Electronically, [id number], 150, cm, 01/18/24 9:29:00 EDT, Height, 88.5, kg, 08/14/23 0:53:00 EDT, Dry Weight Start Date: 02/04/24 Status: Ordered Quantity: 90.0 Unit: tablet Repeat number: 1 Breo Ellipta 100 mcg-25 mcg/inh inhalation powder 0 Refills, Maintenance, 06/27/23 11:28:00 AM EDT, Partial fill upon patient request if the prescription is for a schedule II opioid drug. Start Date: 06/27/23 Status: Ordered Repeat number: 1 citalopram 40 mg oral tablet 1 tablet, By Mouth, Daily, # 90 tablet, 1 Refills, Maintenance, 12/03/23 12:48:00 PM EDT, [facility], 150, cm, 09/28/23 10:38:00 EDT, Height, 88.5, kg, 08/14/23 0:53:00 EDT, Dry Weight Start Date: 12/03/23 Status: Ordered Quantity: 90.0 Unit: tablet Repeat number: 1 clobetasol 0.05% topical ointment 0 Refills, Maintenance, 09/28/23 10:57:00 AM EDT, Partial fill upon patient request if the prescription is for a schedule II opioid drug. Start Date: 09/28/23 Status: Ordered Repeat number: 1 Co Q-10 100 mg oral capsule 1 capsule, By Mouth, Daily, NOT COVERED UNDER PART D., # 90 capsule, 3 Refills, Maintenance, 01/30/23 2:39:00 PM EST, [facility] #[id number], 150, cm, 01/09/23 10:57:00 EDT, Height, 90, kg, 11/18/22 10:10:00 EDT, Dry Weight Start Date: 01/30/23 Status: Ordered Quantity: 90.0 Unit: capsule Repeat number: 4 CPAP Machine See Instructions, # 1 each, Maintenance, AutoCPAP 8-14 cm H20, use Daily when sleeping, 08/31/22 10:05:00 AM EDT, Supply Start Date: 08/31/22 Status: Ordered Quantity: 1.0 Unit: each Repeat number: 1 ezetimibe 10 mg oral tablet 1 tablet, By Mouth, Daily, # 90 tablet, 3 Refills, Maintenance, 01/01/24 3:46:00 PM EDT, [facility]/pharm[facility] #[id number], 150, cm, 12/29/23 10:18:00 EDT, Height, 88.5, kg, 08/14/23 0:53:00 EDT, Dry Weight Start Date: 01/01/24 Status: Ordered Quantity: 90.0 Unit: tablet Repeat number: 4 Freestyle Lite Lancets See Instructions, # 200 each, Refills 5, Tot. Refills 5, Maintenance, use to test BS once daily DX:E11.9, 09/07/23 11:07:00 AM EDT, Supply, 150, cm, 08/25/23 11:10:00 EDT, Height, 88.5, kg, 08/14/23 0:53:00 EDT, Dry Weight Start Date: 09/07/23 Stop Date: 03/05/24 Status: Ordered Quantity: 200.0 Unit: each Repeat number: 6 Freestyle Lite Lancets See Instructions, # 200 each, Refills 5, Tot. Refills 5, Maintenance, Use to test BID daily Dx: E11.9, 08/31/23 9:08:00 AM EDT, Supply, 150, cm, 08/25/23 11:10:00 EDT, Height, 88.5, kg, 08/14/23 0:53:00 EDT, Dry Weight Start Date: 08/31/23 Stop Date: 02/27/24 Status: Ordered Quantity: 200.0 Unit: each Repeat number: 6 Freestyle Lite Monitor See Instructions, # 1 each, Refills 5, Tot. Refills 5, Maintenance, Use to test BID daily Dx: E11.9, 08/31/23 9:09:00 AM EDT, Supply, 150, cm, 08/25/23 11:10:00 EDT, Height, 88.5, kg, 08/14/23 0:53:00EDT, Dry Weight Start Date: 08/31/23 Stop Date: 02/27/24 Status: Ordered Quantity: 1.0 Unit: each Repeat number: 6 Freestyle Lite Test Strips See Instructions, # 200 each, Refills 5, Tot. Refills 5, Maintenance, use to test BS once daily DX:E11.9, 09/07/23 11:08:00 AM EDT, Supply, 150, cm, 08/25/23 11:10:00 EDT, Height, 88.5, kg, 08/14/23 0:53:00 EDT, Dry Weight Start Date: 09/07/23 Stop Date: 03/05/24 Status: Ordered Quantity: 200.0 Unit: each Repeat number: 6 Freestyle Lite Test Strips See Instructions, # 200 each, Refills 5, Tot. Refills 5, Maintenance, Use to test BID daily Dx: E11.9, 08/31/23 9:09:00 AM EDT, Supply, 150, cm, 08/25/23 11:10:00 EDT, Height, 88.5, kg, 08/14/23 0:53:00 EDT, Dry Weight Start Date: 08/31/23 Status: Ordered Quantity: 200.0 Unit: each Repeat number: 6 hydrochlorothiazide 25 mg oral tablet 1, tablet, By Mouth, Daily, # 90 tablet, Refills 3, Maintenance, 02/13/23 10:54:00 AM EST, Route toPharmacy Electronically, [id number], 150, cm, 01/09/23 10:57:00 EDT, Height, 90, kg, 11/18/22 10:10:00 EDT, Dry Weight Start Date: 02/13/23 Status: Ordered Quantity: 90.0 Unit: tablet Repeat number: 1 nebulizer tubing DX:J45.909 nebulizer tubing DX:J45.909, See Instructions, # 1 each, Refills 0, Tot. Refills 0, Maintenance, nebulizer tubing DX:J45.909, 11/25/22 2:15:00 PM EDT, Supply, 150, cm, 11/25/22 13:51:00 EDT, Height, 90, kg, 11/18/22 10:10:00 EDT, Dry Weight Start Date: 11/25/22 Status: Ordered Quantity: 1.0 Unit: each Repeat number: 1 Nebulizer/Compressor See Instructions, # 1 each, Maintenance, DX:J45.909, 11/25/22 2:14:00 PM EDT, Supply, 150, cm, 11/25/22 13:51:00 EDT, Height, 90, kg, 11/18/22 10:10:00 EDT, Dry Weight Start Date: 11/25/22 Status: Ordered Quantity: 1.0 Unit: each Repeat number: 1 Nexium 20 mg oral enteric coated capsule 1 capsule = 20 mg, By Mouth, Daily, # 90 capsule, 0 Refills, Maintenance, 01/21/22 2:17:00 PM EDT, [facility] Capsule, Partial fill upon patient request if the prescription is for a schedule II opioid drug. Start Date: 11/4/22 Status: Ordered Quantity: 90.0 Unit: capsule Repeat number: 1 Ozempic 2 mg/3 mL (0.25 mg or 0.5 mg dose) subcutaneous solution See Instructions, INJECT 0.25 MG SUBCUTANEOUS INJECTION EVERY WEEK, ROTATE INJECTION SITES, # 3 Unknown, 0 Refills, Maintenance, 11/16/23 2:22:00 PM EDT, [id number], 150, cm, 09/28/23 10:38:00 EDT, Height, 88.5, kg, 08/14/23 0:53:00 EDT, Dry Weight Start Date: 11/16/23 Status: Ordered Quantity: 3.0 Unit: Unknown Repeat number: 1 Ozempic 2 mg/3 mL (0.25 mg or 0.5 mg dose) subcutaneous solution = 0.5 mg, Subcutaneous Injection, Every week, rotate injection sites, # 1 each, 5 Refills, Maintenance, 12/29/23 12:31:00 PM EDT, Solution, [id number], Partial fill upon patient request if the prescription is for a schedule II opioid drug., 150, cm, 12/29/23 10:18:00 EDT, Height, 88.5, kg, 08/14/23 0:53:00 EDT, Dry Weight Start Date: 12/29/23 Status: Ordered Quantity: 1.0 Unit: each Repeat number: 6 rOPINIRole 0.5 mg oral tablet 1 tablet, By Mouth, Daily in AM, # 90 tablet, 1 Refills, Maintenance, 12/20/23 5:43:00 PM EDT, [id number], 150, cm, 09/28/23 10:38:00 EDT, Height, 88.5, kg, 08/14/23 0:53:00 EDT, Dry Weight Start Date: 12/20/23 Status: Ordered Quantity: 90.0 Unit: tablet Repeat number: 1 Problem List Condition Confirmation Course Effective Dates Status Health Status Informant Coronary artery disease involving [place] coronary artery of [place] heart without angina pectoris Confirmed Active Endometriosis Confirmed Active Primary hypertension Confirmed Active GERD (gastroesophageal reflux disease) Confirmed Active Hypercholesterolemia Confirmed Active Major depression Confirmed Active Migraine Confirmed Active HUMBERTO (obstructive sleep apnea) Confirmed Active RLS (restless legs syndrome) Confirmed Active Severe obesity (BMI 35.0-39.9) with comorbidity Confirmed Active Type 2 diabetes mellitus Confirmed Active Social History Social History Type Response Smoking Status Never (less than 100 in lifetime);Never entered on: 01/21/22 Sex Sex Representation Female (finding) Patient Care team information Care Team Personnel Name: Nasrin Barros Position: S PCO Associate Professional Member Role: PCP Address: [address] [place], [place] [id number] Telecom: Care Team Related Persons Name: ROLAND DEL REAL Name: NEW PACKER Insurance Providers Guarantor name: FELISA DEL REAL Health Plan Information #: 1 Payer: MEDICARE PART B OUTPT Member Number: NA Policy Number: NA Group Number: NA Health Plan Information #: 2 Payer: MEDEX Member Number: NA Policy Number: NA Group Number: NA
--- OUTSIDE RECORDS SUMMARY | 2024-03-11 12:47 | XMS_ITS | Continuity of Care Document ---
Author Organization [facility] ter Address [address] [place] [address]- Care Team Providers Care Air Defense Specialist Name Role Phone Nasrin Barros Primary Care Physician Encounter [facility] [place] Date(s): 02/07/24 - 03/08/[address] [address]- Encounter Type: Triage Allergies, Adverse Reactions, Alerts Substance Criticality Severity Reaction Reaction Severity Status codeine Respiratory arrest A ctive Imitrex loc Active Immunizations Given and Recorded Vaccine Date Status Refusal Reason RSV vaccine preF3, recombinant 01/12/23 Recorded SARS-CoV-2(COVID-19)mRNA-LNP vac(ryu144) 12/26/22 Recorded influenza virus vaccine, inactivated 12/12/22 Heri rded influenza virus vaccine, inactivated 12/13/21 Heri rded [id number] 12y+ bivalent booster vax 06/10/22 Recorded SARS-CoV-2 mRNA (flowjid-ykud-hfgqk) vax 10/12/21 Recorded Medications Aerochamber See Instructions, [...] 1 Refills, Maintenance, 01/02/24 12:13:00 PM EDT, [facility] [id number], 150, cm, 12/29/23 10:18:00 EDT, Height, 88.5, kg, 08/14/23 0:53:00 EDT, Dry Weight Start Date: 01/02/24 Status: Ordered Quantity: 90.0 Unit: tablet Repeat number: 1 aspirin 81 mg oral delayed release tablet 81 mg, 1, tablet, By Mouth, Daily, # 90 tablet, Refills 3, Tot. Refills 3, Maintenance, 01/30/23 2:39:00 PM EST, Route to Pharmacy Electronically, [facility]/pharmacy #[id number], Partial fill upon patient request [...] 7:36:00 AM EST, Route to Pharmacy Electronically, [facility] [id number], 150, cm, 01/18/24 9:29:00 EDT, Height, 88.5, [...] Maintenance, 12/03/23 12:48:00 PM EDT, [facility], 150, cm, 09/28/23 10:38:00 EDT, Height, 88.5, [...] 3 Refills, Maintenance, 01/30/23 2:39:00 PM EST, [facility]/pharmacy #[id number], 150, cm, 01/09/23 10:57:00 EDT, [...] 3 Refills, Maintenance, 01/01/24 3:46:00 PM EDT, [facility]/pharmacy #[id number], 150, cm, 12/29/23 10:18:00 EDT, [...] 02/13/23 10:54:00 AM EST, Route toPharmacy Electronically, [facility], 150, cm, 01/09/23 10:57:00 EDT, Height, 90, [...] Maintenance, 11/16/23 2:22:00 PM EDT, [facility], 150, cm, 09/28/23 10:38:00 EDT, Height, 88.5, [...] Maintenance, 12/20/23 5:43:00 PM EDT, [facility], 150, cm, 09/28/23 10:38:00 EDT, Height, 88.5, kg, 08/14/23 0:53:00 EDT, Dry Weight Start Date: 12/20/23 Status: Ordered Quantity: 90.0 Unit: tablet Repeat number: 1 Problem List Condition Confirmation Course Effective Dates Status Health Status Informant Coronary artery disease involving [place] coronary artery of [place] heart without angina pectoris Confirmed Active Endometriosis [...] PCO Associate Professional Member Role: PCP Address: [address] [place], [place] [id number] Telecom: Care Team Related Persons Name: ROLAND DEL REAL Name: NEW PACKER Insurance Providers Guarantor name: FELISA DEL REAL Health Plan Information #: 1 Payer: MEDICARE PART B OUTPT Member Number: NA Policy Number: NA Group Number: NA Health Plan Information #: 2 Payer: MEDEX Member Number: NA Policy Number: NA Group Number: NA
== END 2024-03-11 12:46 | disposition home or self-care (01) ==
LOC: HO.CT 12:45
PROVIDERS: PCP Physician Assistant Medical; Visit Provider Nurse Practitioner Family
DX: R91.8 Other nonspecific abnormal finding of lung field (principal)
CPT/HCPCS: 71250

== ENCOUNTER → 2024-03-11 12:47 | Outpatient (BNV) | payer MEDICARE, SELFPAY | PROVIDERS: PCP Physician Assistant Medical; Visit Provider Radiology Diagnostic Radiology | DX: R91.8 Other nonspecific abnormal finding of lung field (principal) | CPT/HCPCS: 71250 ==

== ENCOUNTER 2024-05-07 10:35 | Outpatient (AMB) | payer MEDICARE, SELFPAY ==
[2024-05-07 10:48] VITALS: BP 124/72; PULSE 67; O2SAT 97; BMI 34.5
--- NOTE | 2024-05-07 10:48 | MHC.OFFVIS ---
Vital Signs 05/07/24 10:48 Height 4 ft 11 in Weight 171 lb BMI 34.5 BP 124/72 Blood Pressure Location Lt brachial Position Sitting Pulse 67 Pulse Source Pulse Oximeter Pulse Oximetry (%) 97 Oxygen Delivery Method Room Air Intake Visit Reasons: Dyspnea Seam Stayer Required: No Accompanied by: Self / Same As Patient Allergies codeine Allergy (Severe, Verified 05/07/24 10:53) trouble breathing Imitrex Allergy (Severe, Uncoded 05/07/24 10:53) Anaphylaxis Medication List - Last Reconciled 05/07/24 by Anita Montiel LPN albuterol sulfate 2.5 mg (3 mL) inhalation Q6H PRN albuterol sulfate 90 mcg/actuation (Ventolin HFA) 2 puffs inhalation Q4-6H PRN amlodipine 5 mg PO DAILY aspirin (Adult Aspirin Regimen) 81 mg PO DAILY atenolol 25 mg PO DAILY citalopram 40 mg PO DAILY ezetimibe 10 mg PO DAILY fluticasone furoate-vilanterol 100-25 mcg/dose (Breo Ellipta) 1 inh inhalation DAILY hydrochlorothiazide 25 mg PO DAILY ipratropium bromide 2 sprays intranasal BID omeprazole 20 mg PO DAILY ropinirole 1.5 mg PO DAILY semaglutide (Ozempic) 0.25 mg subcut QWEEK HPI HPI Dyspnea: Details: Lucy is a pleasant 68 year old female, never smoker, with underlying asthma, pulmonary nodules, GERD, HUMBERTO on CPAP through [facility], hypertension and coronary artery disease. At baseline, she reports excellent control of respiratory symptoms with Breo, requiring albuterol MDI infrequently. Since the last visit, she has been evaluated by urgent care for a sinus infection, and COVID, requiring Paxlovid, recovering back to baseline. Of note, she has been under the care of [facility] and had recent sleep study, revealing less obstructive events, likely related to recent intentional weight loss with Ozempic. Today she presents to review Chest CT results. [facility] Surgical History (Updated 01/02/24 @ 10:55 by Meche Chowdhury) Hx of laparoscopy Hx of cholecystectomy Hx of appendectomy Hx of tonsillectomy Family History (Updated 01/02/24 @ 11:01 by Meche Chowdhury) Mother Breast CA Diabetes mellitus HTN (hypertension) Parkinson disease Father Skin cancer Sister Arthritis Atrial fibrillation Social History Household Members: Family Alcohol intake: never Patient Tobacco Use Status: Never used Tobacco Review of Systems Const Denies chills, Denies excessive sweating, Denies fever(s), Denies headache(s) and Denies night sweats Eyes Denies dry eyes, Denies irritation and Denies itchy eyes ENT Reports Normal hearing present, Denies headache(s), Denies nasal congestion, Denies nasal discharge, Denies post nasal drip and Denies sore throat Card Denies chest pain, Denies chest pain at rest, Denies chest pain with activity, Denies claudication, Denies leg edema, Denies dyspnea, Denies dyspnea on exertion, Denies orthopnea and Denies paroxysmal nocturnal dyspnea Resp Denies chest congestion, Denies cough, Denies excessive phlegm production, Denies pain on inspiration, Denies pain with cough, Denies dyspnea, Denies dyspnea on exertion, Denies stridor and Denies wheezing Musc Denies myalgias Neuro Reports Normal hearing present and Denies headache(s) Endo Denies excessive sweating Berny/Lymph Denies lymphadenopathy Aller/Immun Denies itchy eyes, Denies seasonal rhinorrhea and Denies wheezing Physical Exam Vital Signs: Last Vital Signs Pulse 67 05/07/24 10:48 BP 124/72 05/07/24 10:48 Pulse Ox 97 05/07/24 10:48 Oxygen Delivery Method Room Air 05/07/24 10:48 BMI result Body Mass Index 34.5 Const General: cooperative, healthy appearing, comfortable, no acute distress, well developed and alert Nutritional Appearance: obese Orientation/consciousness: patient oriented x3 Limitations: no limitations HEENT Head: Yes normal to inspection, Yes normocephalic and Yes atraumatic Ears: hearing grossly normal bilaterally and external ears normal Eyes General: appearance normal, both eyes and all related structures Eyelids: Yes eyelids normal Sclerae: sclerae normal EOM: EOMs intact bilaterally Neck Neck: Yes normal visual inspection and Yes no lymphadenopathy Lymphatic: no lymphadenopathy noted Chest Chest palpation & inspection: normal inspection of the chest Resp Effort & Inspection: normal respiratory effort, able to speak in complete sentences, no audible wheezes, no cough, no stridor, not tachypneic, no tripod positioning and no use of accessory muscles Auscultation: clear to auscultation bilaterally Cardio Jugular venous distension: no JVD Rate: regular rate Rhythm: regular rhythm Skin Other: warm, dry General skin exam: no rashes or lesions noted Neuro General: patient oriented x3 Cranial nerves: Yes Normal hearing present Cognition (Neuro): normal cognition Gait exam (Neuro): Normal gait present Extrem General: Yes normal to inspection, Yes capillary refill normal, Yes no clubbing, cyanosis or edema and Yes no pedal edema Psych Appearance: grossly normal and well kempt Speech and movement: Normal speech and movement present and Clear speech present Affect: normal affect Attitude: cooperative Thought process: Normal thought process present Thought content: Normal thought content present Insight: Good insight present (Psych) Judgement: Good judgement present (Psych) Results Reviewed Results Reviewed: [address] [address] [address] Scan Report Signed Patient: Lucy Lindquist MR#: [id number] : 1955 Acct:[id number] Age/Sex: 68 / F ADM Date: 03/11/24 Loc: HO.CT Attending Dr: Arlene Marques NP Ordering Physician: Arlene Marques NP Date of Service: 03/11/24 Procedure(s): CT chest wo IV con Accession Number(s): [id number] cc: Nasrin Bajwa; Arlene Marques NP~ Report Number: [id number]: Total DLP = 175.00 mGy-cm CLINICAL HISTORY: R91.8 - Other nonspecific abnormal finding of lung field CT chest without contrast Comparison: None Findings: The heart size is normal. The visualized thyroid and mediastinum are unremarkable. There is a linear opacity within the lateral aspect of the right lower lobe and there are reticular opacities within the posterior aspect of the left lower lobe. These most likely represent areas of scarring. There is a 4 mm nodule within the left lower lobe (3, 33). No consolidation or pleural effusion. The visualized upper abdomen is unremarkable. No acute fractures. IMPRESSION: 1. No acute cardiopulmonary disease. 2. There is a 4 mm left lower lobe nodule. If the patient is high risk, consider CT follow-up in 1 year. 3. Small foci of scarring within the bilateral lower lobes. This document has been electronically signed by: Stephania Gonzalez MD on 04/09/2024 13:56:10 Dictated By: Stephania Gonzalez MD Signed By: <Electronically signed by Stephania Gonzalez MD in OV> 04/09/24 1356 DD/ 1356 TD/TT: 04/09/24 1356 Tie Tamper: Assessment & Plan Assessment & Plan (1) Asthma: Code(s): J45.909 - Unspecified asthma, uncomplicated Category: Medical (2) Dyspnea on exertion: Code(s): R06.09 - Other forms of dyspnea Category: Medical (3) Restrictive lung disease: Code(s): J98.4 - Other disorders of lung Category: Medical (4) Environmental allergies: Code(s): Z91.09 - Other allergy status, other than to drugs and biological substances Category: Medical (5) Multiple pulmonary nodules: Code(s): R91.8 - Other nonspecific abnormal finding of lung field Category: Medical Plan Lucy reports good control of asthma on Breo and albuterol MDI, advised to continue. Chest CT from 03/2024 revealed 4mm LLL pulmonary nodule that was present previously on chest CT 03/2023, however measured 1 mm at that time. Will repeat in 6 months. All questions were answered and patient is in agreement of plan. Will follow up in 6 months or sooner if needed. Orders: Orders CT chest wo IV con 5 Months R91.8 - Other nonspecific abnormal finding of lung field Coding Level of Care Code Est Pt Level 4 (07240) Diagnoses Asthma J45.909 Dyspnea on exertion R06.09 Restrictive lung disease J98.4 Environmental allergies Z91.09 Multiple pulmonary nodules R91.8
--- OUTSIDE RECORDS SUMMARY | 2024-05-07 11:35 | XMS_ITS | Data Portability ---
Author Organization [facility], [facility] Address [address] [place] [address] Care Team Providers Care Gym Manager Name Role Phone KATHRIN BROWN Primary Care Provider Assessment Encounter Date Assessment Date Assessment LastModified by Organization Details LastModified Time 09/07/2023 09/07/2023 I am seeing the patient today under the supervision of Dr. Box who was available but did not see the patient. HPI: The patient is a 68-year-old female presenting today for reevaluation of her hip pain. We have been evaluating her for trochanteric bursitis as well as lumbar radiculopathy. Currently she states that her lateral hip pain is much more bothersome. She has had a decrease in the numbness and tingling in the heel that was prescribed at her last visit. She states that she felt a little bit of relief from the Medrol Dosepak however the pain continues to bother her about the buttock area. She has difficulty with ascending and descending stairs and getting out of a chair Past family, medical, social history and review of systems has been reviewed, updated and is located in the patient's chart. Examination: The patient is well appearing and in no apparent distress. Alert and oriented x3. Gait is symmetric. Right hip : Visual inspection reveals no erythema, ecchymoses, swelling or visible deformity. Moderate tenderness to palpation about the greater trochanter. Hip range of motion full without irritability. Strength 5/5. Negative HUNTER. Negative FADDIR. Negative scouring test. Negative Stinchfield. Neurovascular intact.: An MRI was ordered at our last appointment of the lumbar spine. These images are available for my independent review today. I also reviewed the findings with the patient. There is a minimal retrolisthesis all L1 over L2. No vertebral body fracture is seen. Small incidental hemangiomas seen within L5 body. The bone marrow signals are diffusely heterogeneous consistent with degenerative changes. Mild marginal osteophytes disc desiccation are seen diffusely. Disc space narrowing is noted at T11-T12 to L1-L2 levels. No other significant nerve root impingement. Impression: Lumbar degenerative disc disease, trochanteric bursitis right hip Plan: I explained the nature of the diagnosis with the patient and its treatment options both conservative and surgical. At this point in time the patient's trochanteric bursitis is more symptomatic. She does not have any severe findings on lumbar spine MRI and we discussed potential referral for back injections if necessary however this would only be if she became more symptomatic from this. Please see procedure documentation for further information about the injection performed today. The patient understands and agrees with the plan. They know to call if they have any further questions or concerns regarding their symptoms, or to follow up sooner if needed. [email or web address] Not available 09/07/2023 13:49:56 12/07/2023 12/07/2023 I am seeing the patient today under the supervision of Dr. Davison who was available but who did not see the patient. The patient presents today for follow-up. Has known trochanteric bursitis of the Right hip. The patient's most recent cortisone injection did seem to provide continued relief. She also states that she has lost some weight after starting Ozempic and feels as if this is helping. Sharp and intense pain when ascending and descending stairs although overall she is happy with her improvement. has had no recent trauma, no fevers or chills, no neurovascular changes. Presents today for further evaluation. PAST MEDICAL/SURGICAL HISTORY Past medical history is reviewed per intake sheet. PHYSICAL FINDINGS On physical examination, the patient is well appearing and in no apparent distress, alert and oriented x3. Gait is symmetric. Examination of the hip reveals the skin to be intact, normal musculature, continued tenderness on palpation over the greater trochanter. No pain with range of motion of the hip, has full range of motion, no crepitus noted with range of motion. No significant pain with straight leg raise. ASSESSMENT Improving trochanteric bursitis of the Right hip. PLAN I explained the nature of the diagnosis with the patient and its treatment options both conservative and surgical.Conserva tive measures were discussed at length including but not limited to physical therapy, bracing, anti-inflammatori es and injection therapies. Patient would like to hold off on any modalities today. The patient will follow up in 3 months. The patient understands and agrees with the plan. They know to call if they have any further questions or concerns regarding their symptoms, or to follow up sooner if needed. Not available 12/07/2023 12:11:33 03/12/2024 03/12/2024 I am seeing the patient today under the supervision of Dr. Ruiz who was available but who did not see the patient. The patient presents today for follow-up. Has known trochanteric bursitis of the Right hip. Has had previous cortisone injection which gave relief until recently. Had a fall in early February that seemed to bring on more pain about the hip. She fell onto the left side. Presents today for further evaluation. PAST MEDICAL/SURGICAL HISTORY Past medical history is reviewed per intake sheet. PHYSICAL FINDINGS On physical examination, the patient is well appearing and in no apparent distress, alert and oriented x3. Gait is symmetric. Examination of the hip reveals the skin to be intact, normal musculature, continued tenderness on palpation over the greater trochanter. No pain with range of motion of the hip, has full range of motion, no crepitus noted with range of motion. No significant pain with straight leg raise. 2 x-ray views of the Right hip were independently reviewed today : No fractures, no deformities, no DJD noted on todays exam ASSESSMENT Symptomatic trochanteric bursitis of the Right hip. PLAN I explained the nature of the diagnosis with the patient and its treatment options both conservative and surgical.Conserva tive measures were discussed at length including but not limited to physical therapy, bracing, anti-inflammatori es and injection therapies. Please see procedure note for more information about the injection performed today. The patient will follow up in 3 months. The patient understands and agrees with the plan. They know to call if they have any further questions or concerns regarding their symptoms, or to follow up sooner if needed. [email or web address] Not available 03/12/2024 09:47:01 Plan of Treatment Reminders Order Date Submit Date Provider Last Modified By Organization Details Last Modified Time Details Appointments RECHECK 15 2024 09:15A M Vj Thornton PA-C Not available Not available Not available Lab None recorded . Referral None recorded . Procedures None recorded . Surgeries None recorded . Imaging XR, lumbar spine - est pt new eval low back pain room 119 2023 024 [email or web address], [address], [place], [address], 08/20/2023 16:38:23 Medication Orders Medrol (Ricci) 4 mg tablets in a dose pack 2023 024 [facility] #[id number], [address] , [place], [address], 07/27/2023 10:27:28 Patient TargetsNo targets recorded. Patient Instructions Encounter Date Encounter Id Patient Instructions Last Modified By Organization Details Last Modified Time 07/27/2023 [id number] low back pain: exercises [email or web address] Not available 07/27/2023 10:27:27 Reason for Referral None Reported. Results Created Date Observation Date Name Description Value Unit Range Abnormal Flag Note LastModifiedBy Organization Detail LastModifiedTime 08/24/19 24 08/23/2023 MRI, lumba r spine , w/o contr ast [facility] Access ion Number : [id number] Patien t Name: Lucy Lindquist Record Number : [id number] Date of : 1955 Date of Exam: 2023 Referr ing Physic pablo: Alhaji Thornton [facility]OS [address] [place] [address] Exam: MR Lumbar Spine (C-) CPT 33795 Room Descri ption: [facility] Verio 3.0T MRI of the lumbar spine withou t contra st. HISTOR Y: Low back pain. Right leg pain and parest hesia. COMPAR MAGGIE: None. FINDIN GS: This study assume s 5 nonrib -beari ng lumbar -type verteb ral bodies . The conus medull chelsi has a normal calibe r and signal intens ities. It termin ates at L1-L2 level. There is a minima l retrol isthes is all L1 over L2. No verteb ral body fractu re is seen. Small incide ntal dusty iomas seen within L5 body. The bone marrow signal s are diffus bryan hetero geneou s consis tent with degene rative change s. Mild margin al osteop hytes disc desicc ation are seen diffus bryan. Disc space narrow ing is noted at T11-T1 2 to L1-L2 levels . L1-L2 level has a minima l retrol isthes is. No disc hernia tion, stenos is or neural forame n narrow ing. L2-L3 and L3-L4 levels have no disc hernia tion, stenos is or neural forame n narrow ing. There is mild degene rative facet arthro rosalia bilate rally. L4-L5 level has a minima l disc bulge withou t disc hernia tion or nerve root compre ssion. The ligame ntum flavum are mildly hypert rophic . The facet joints are mildly degene rative . No neural forame n narrow ing. L5-S1 level has a mild disc bulge. No stenos is or nerve root compre ssion. The ligame ntum flavum are mildly hypert rophic . The facet joints are mildly degene rative . No neural forame n narrow ing. IMPRES JENARO: Mild lumbar spondy losis as descri bed above. Electr onical ly Signed By: Vikash Macias MD [email or web address] [facility] ([facility]) [address] [place], [address], 09/11/2023 12:04:47 Result Notes None recorded. Problems Name Problem SNOMED Code Status Onset Date Resolution Date Notes Provider Name and Address Organization Details Recorded Time Trochanteri c bursitis of right hip 4801421750147 00 Active 2023 christine camilo [place] - [facility] 4 13:25:51 Pain in right hip joint 4123718764982 02 Active 2023 christine camilo [place] - [facility] 4 13:27:14 Low back pain 404816521 Active 2023 KAYLIA L'HEUREUX ton [place] - [facility] 4 09:57:29 Problem Notes None recorded. Procedures Surgical History Date Name Laterality Status Provider Name and Address Organization Details Recorded Time 4 JZHip Inj completed Vj Thornton PA-C [address] [facility], [place], [address], [facility] 03/12/2024 08:01:55 4 Hip Kenalog 1cc Injection, L/R completed Vj Thornton PA-C [address] [facility], [place], [address], [facility] 09/07/2023 13:48:21 4 Hip Kenalog 1cc Injection, L/R completed Vj Thornton PA-C [address] [facility], [place], [address], [facility] 06/07/2023 14:07:59 Imaging Results Imaging Date Name Status LastModified by Organiz ation Details LastModified Time 08/23/2023 MRI, lumbar spine, w/o contrast completed [email or web address] [facility] ([facility]) [address], [place], [address], 09/11/2023 12:04:47 Procedure Notes None recorded. Medical Equipment None Reported. Allergies Allergen ID Allergen Name Allergen Category Reaction Reaction Severity Criticality Documentation Date Start Date Code Code System Note Provider Name and Address Organization Details Recorded Time 208939 codeine medicatio n Not available Not available Not available 05/22/20232022 2670 RxNorm Aller gyNam e: 'Code ine and Relat ed'; Not Available [employer] 15:50:01 Medications Name Sig Start Date Stop Date Status Note LastModified by Organization Details LastModified Time promethazin e-DM 6.25 mg-15 mg/5 mL oral syrup TAKE 5 ML BY MOUTH EVERY 6 HOURS FOR 7 DAYS 06/06 completed Not Available Not Available Not Available ropinirole 1 mg tablet TAKE 1 TABLET BY MOUTH AT BEDTIME, 1-3 HOURS BEFORE BED active Not Available Not Available No t Available albuterol sulfate 2.5 mg/3 mL (0.083 %) solution for nebulizatio n INHALE 3 MLS VIA NEBULIZAT ION EVERY 6 HOURS NEEDED FOR WHEEZING/ SHORTNESS OF BREATH active Not Available Not Available No t Available citalopram 40 mg tablet TAKE 1 TABLET BY MOUTH EVERY DAY active Not Available Not Available No t Available azithromyci n 250 mg tablet TAKE 1 PACKET BY MOUTH ONCE DIRECTED ON PACKAGE LABELING 06/06 completed Not Available Not Available Not Available FreeStyle Lancets 28 gauge USE DIRECTED ONCE DAILY 12/06 completed Not Available Not Available Not Available prednisone 20 mg tablet TAKE 2 TABLETS BY MOUTH EVERY DAY FOR 5 DAYS 06/06 completed Not Available Not Available Not Available atenolol 25 mg tablet TAKE 1 TABLET BY MOUTH EVERY DAY active Not Available Not Available No t Available amlodipine 5 mg tablet TAKE 1 TABLET BY MOUTH EVERY DAY active Not Available Not Available No t Available sulfamethox azole 800 mg-trimetho prim 160 mg tablet TAKE 1 TABLET BY MOUTH EVERY 12 HOURS FOR 10 DAYS 12/06 completed Not Available Not Available Not Available aspirin 81 mg tablet,carissa yed release TAKE 1 TABLET BY MOUTH EVERY DAY active Not Available Not Available No t Available triamcinolo ne acetonide 0.025 % topical cream APPLY TO AFFECTED AREA TWICE A DAY FOR 14 DAYS 12/06 completed Not Available Not Available Not Available cephalexin 500 mg capsule TAKE 1 CAPSULE BY MOUTH 4 TIMES A DAY FOR 7 DAYS 12/06 completed Not Available Not Available Not Available oseltamivir 75 mg capsule TAKE 1 CAPSULE BY MOUTH TWICE A DAY FOR 5 DAYS 06/06 completed Not Available Not Available Not Available ropinirole 0.5 mg tablet TAKE 1 TABLET BY MOUTH EVERY MORNING active Not Available Not Available No t Available hydrochloro thiazide 25 mg tablet TAKE 1 TABLET BY MOUTH EVERY DAY active Not Available Not Available No t Available furosemide 20 mg tablet TAKE 1 TABLET BY MOUTH EVERY DAY FOR 7 DAYS 12/06 completed Not Available Not Available Not Available clobetasol 0.05 % topical ointment APPLY TO LOWER LEGS TWICE DAILY NEEDED FOR UP TO 2, BREAK ONE WEEK, AND REPEAT CYCLE NEEDED. active Not Available Not Available No t Available methylpredn isolone 4 mg tablets in a dose pack TAKE 6 TABLETS ON DAY 1 DIRECTED ON PACKAGE AND DECREASE BY 1 TAB EACH DAY FOR A TOTAL OF 6 DAYS 11/30 completed Not Available Not Available Not Available albuterol sulfate HFA 90 mcg/actuati on aerosol inhaler USE 1 PUFFS INHALATIO N 4 TIMES A DAY NEEDED FOR WHEEZING active Not Available Not Available No t Available ipratropium bromide 21 mcg (0.03 %) nasal spray USE 2 SPRAYS INTRANASA LLY 2 TIMES A DAY ADMINISTE R INTO EACH NOSTRIL active Not Available Not Available No t Available amoxicillin 875 mg-potassiu m clavulanate 125 mg tablet TAKE 1 TABLET BY MOUTH EVERY 12 HOURS FOR 7 DAYS 06/06 completed Not Available Not Available Not Available ezetimibe 10 mg tablet TAKE 1 TABLET BY MOUTH EVERY DAY active Not Available Not Available No t Available coenzyme Q10 100 mg capsule TAKE 1 CAPSULE BY MOUTH EVERY DAY active Not Available Not Available No t Available Ventolin HFA active Not Available Not Available Not Available Pulmicort Flexhaler 180 mcg/actuati on breath activated TAKE 1 PUFF BY MOUTH EVERY 6 HOURS NEEDED 06/06 completed Not Available Not Available Not Available FreeStyle Lite Meter kit USE TO TEST TWO TIMES DAILY DX: E11.9 12/06 completed Not Available Not Available Not Available FreeStyle Lite Strips USE TO TEST BS ONCE DAILY DX: E11.9 12/06 completed Not Available Not Available Not Available [facility] spacer USE WITH INHALER DIRECTED NOT COVERED 06/06 completed Not Available Not Available Not Available fluticasone furoate 100 mcg-vilante rol 25 mcg/dose inhalation powder INHALE 1 PUFF DAILY active Not Available Not Available No t Available Ozempic 12/06 completed Not Available Not Available Not Available Flowflex COVID-19 Antigen Home Test kit TAKE DIRECTED 06/06 completed Not Available Not Available Not Available Ozempic 0.25 mg or 0.5 mg (2 mg/3 mL) subcutaneou s pen injector INJECT 0.5 MG SUBCUTANE OUS INJECTION EVERY WEEK, ROTATE INJECTION SITES active Not Available Not Available No t Available Vitals Date Recorded Body height Body mass index (BMI) Body weight Provider Name and Address Organization Details Last Updated DateTime 06/07/2023 147.32 cm 40.8 kg/m2 90589.51 g KAYLIA L'HEUREUX [place] - [facility] 06/07/2023 13:51:28 Date Recorded Body height Body mass index (BMI) Body weight Provider Name and Address Organization Details Last Updated DateTime 07/27/2023 147.32 cm 40.8 kg/m2 44133.51 g KAYLIA L'HEUREUX [facility] 07/27/2023 09:56:43 Date Recorded Body height Body mass index (BMI) Body weight Provider Name and Address Organization Details Last Updated DateTime 09/07/2023 147.32 cm 40.8 kg/m2 29204.51 g Vj Thornton PA-C [address] [place] [address] [address], [place], [address], [facility] 09/07/2023 13:24:34 Date Recorded Body height Body mass index (BMI) Body weight Provider Name and Address Organization Details Last Updated DateTime 12/07/2023 147.32 cm 40.8 kg/m2 34453.51 g KAYLIA L'HEUREUX [facility] 12/07/2023 09:54:10 Date Recorded Body height Body mass index (BMI) Body weight Provider Name and Address Organization Details Last Updated DateTime 03/12/2024 147.32 cm 40.8 kg/m2 04624.51 g KAYLIA L'HEUREUX [facility] 03/12/2024 09:38:56 Social History Question Answer Notes LastModified by Organizat ion Details LastModified Time Tobacco Smoking Status Never Smoker BRIIREBECCAJAKE L'HEUREUX [facility] 06/07/2023 13:53:16 What Is Your Level Of Alcohol Consumption? None Information not available 06/07/2023 How Many Times Per Week Do You Consume Alcohol? Less Than 1 Time Per Week Information not available 12/07/2023 Do You Or Have You Ever Used E-cigarettes Or Vape? Never Used Electronic Cigarettes Information not available 12/07/2023 What Is Your Relationship Status? Information not available 06/07/2023 Do You Use Any Illicit Or Recreational Drugs? No Information not available 06/07/2023 How Many Years Have You Smoked Tobacco? 0 Information not available 12/07/2023 Do You Or Have You Ever Used Any Other Forms Of Tobacco Or Nicotine? No Information not available 06/07/2023 Sex: Unknown Functional Status None recorded. Mental Status None recorded. Family History Nothing Reported. Medical History Condition Response Allergies/Hayfever N Coronary Artery Disease N Breathing or lung disorders Y Anxiety/Depression N Emphysema N Nerve Disorders N Thyroid Problems N COPD N Pacemaker N Kidney/Bladder Problems N Anemia N Vascular Disease N Gastrointestinal Disease N Heart Attack (NH) N Cholesterol Y Diabetes N Autoimmune disease N Bleeding Disorder N Orthotics N Arthritis Y Seizures/Epilepsy N Blood Clot N AIDS/HIV N Congestive Heart Failure (CHF) N Acid Reflux (GERD) Y Cancer N Stroke N Asthma Y Circulation Problems N Peripheral Vascular Disease N Sleep Apnea Y Hepatitis N Heart Disease N Rheumatoid Arthritis N Arrhythmia N Pulmonary Embolism N Headaches Y Fibromyalgia N Hypertension Y Osteoporosis N Gynecological HistoryNo gynecological history recorded. Obstetrics History GPAL:G 0 P 0 0 0 0 Past Encounters Encounter ID Performer Location Encounter Start Date Encounter Closed Date Diagnosis/Indication Diagnosis SNOMED-CT Code Diagnosis ICD10 Code Diagnosis Note [id number] JAYA Brown [address] [place] [address] 06/07/2023 13:14:11 06/07/2023 14:20:13 Trochanteric bursitis of right hip 5159530518 38877 M70.61 [id number] JAYA Brown [address] [place] [address] 07/27/2023 09:26:14 08/20/2023 16:38:23 Trochanteric bursitis of right hip 2695851250 16641 M70.61 Low back pain 171299419 M54.50 Lumbar radiculopathy 128 412721 M54.16 [id number] JAYA Brown [address] [place] [address] 09/07/2023 13:05:50 10/12/2023 13:37:19 Trochanteric bursitis of right hip 3531028192 73638 M70.61 Low back pain 450026738 M54.50 Lumbar radiculopathy 128 544483 M54.16 [id number] JAYA Brown [address] [place] [address] 12/07/2023 09:31:20 12/28/2023 11:39:36 Trochanteric bursitis of right hip 7545700210 34479 M70.61 [id number] Vj Thornton PA-C [facility] [address] [place] [address] 03/12/2024 09:32:20 04/02/2024 10:44:47 Trochanteric bursitis of right hip 3518719606 66723 M70.61 Health Concerns Section Related Observation LastModified by Organization Detai ls LastModified Time None Recorded Concern Status LastModified by Organization Details LastModified Time None Recorded Advance Directives Directive None Recorded Payers Encounter Date Sequence Insurance Name Policy Number Policy Key Covered Member ID Key Member ID Guarantor Name 06/07/2023 1 [place] [employer] Lucy Lindquist [id number] Lucy Lindquist 06/07/2023 2 [place] [id number] Lucy Lindquist [id number] Lucy Lindquist 07/27/2023 1 [place] Lucy Lindquist [id number] Lucy Lindquist 07/27/2023 2 [place] [id number] Lucy Lindquist [id number] Lucy Lindquist 09/07/2023 1 [place] Lucy Lindquist [id number] Lucy Lindquist 09/07/2023 2 [place] [id number] Lucy Lindquist [id number] Lucy Lindquist 12/07/2023 1 [place] Lucy Lindquist [id number] Lucy Lindquist 12/07/2023 2 [place] [id number] Lucy Lindquist [id number] Lucy Lindquist 03/12/2024 1 [place] Lucy Estesello [id number] 3 Lucy Tobin Ameena 03/12/2024 2 [place] [id number] Lucy Lindquist [id number] Lucy Lindquist Notes Date Note Type Note Provider Name and Address Organization Details Recorded Time 06/07/2023 text/html I am seeing the patient today under the supervision of Dr. Ruiz who was available but who did not see the patient. The patient presents today for follow-up. Has known trochanteric bursitis of the {{Left Right* Bilater al}} hip. Has had previous cortisone injection which gave relief until recently. Pain 08/27. Has had no recent trauma, no fevers or chills, no neurovascular changes. Presents today for further evaluation. PAST MEDICAL/SURGICAL HISTORYPast medical history is reviewed per intake sheet. PHYSICAL FINDINGSOn physical examination, the patient is well appearing and in no apparent distress, alert and oriented x3. Gait is symmetric. Examination of the hip reveals the skin to be intact, normal musculature, continued tenderness on palpation over the greater trochanter. No pain with range of motion of the hip, has full range of motion, no crepitus noted with range of motion. No significant pain with straight leg raise. 2 x-ray views of the {{Left Right* Bi-late ral}} hip were independently reviewed today :No fractures, no deformities, no DJD noted on todays exam ASSESSMENTSymptomatic trochanteric bursitis of the {{Left Right* Bilater al}} hip. PLANI explained the nature of the diagnosis with the patient and its treatment options both conservative and surgical.Conservative measures were discussed at length including but not limited to physical therapy, bracing, anti-inflammatories and injection therapies.May obtain an MRI of the right hip to rule out gluteal tendon tear if the patient has very limited response from this injection. I did trial a slightly more posterior approach today. This procedure was performed on the {{Left Right* Bilater al}} hip. Prior to giving injection, explained the risk and benefits and patient demostrated good understanding. Under sterile technique, the greater trochanter was palpated with the needle and retracted slightly until the injection of 4 cc Marcaine 0.25%. , 40 mgs Kenalog flowed freely into the trochanteric bursa. Tolerated this well. Post injection precautions reviewed. Instructed the patient to monitor the effects and follow-up in 3 months. Vj Thornton PA-C [address], [place], [address], [facility] 06/07/2023 14:12:48 07/27/2023 text/html I am seeing the patient today under the supervision of Dr. Wheeler who was available but who did not see the patient. The patient presents today for follow-up. Has known trochanteric bursitis of the {{Left Right* Bilater al}} hip. Has had previous cortisone injection which has continued to give relief. We have provided a slightly more posterior approach which she states helped well. She has more pain radiating down the posterior leg into the heel. It seems to be with heel strike that bothers her most. Seems to be terminal extension of the knee as well. She has had lower back difficulties in the past. This is fairly remote several years ago. She did physical therapy and other conservative treatments with some benefit. She has pains numbness in the heel however no bladder or bowel dysfunction. Does have low back pain. PAST MEDICAL/SURGICAL HISTORYPast medical history is reviewed per intake sheet. PHYSICAL FINDINGSOn physical examination, the patient is well appearing and in no apparent distress, alert and oriented x3. Gait is symmetric. Examination of the hip reveals the skin to be intact, normal musculature, continued tenderness on palpation over the greater trochanter. No pain with range of motion of the hip, has full range of motion, no crepitus noted with range of motion. Lumbar Spine: No warmth, effusion, erythema, ecchymosis. Range of motion is 80% of normal flexion, extension, lateral bending, and rotation,. No edema, 5/5 strength of lower extremity. Positive straight leg raise. nontender paraspinal muscles, nontender spinous processes. Calf soft and nontender, neurovascularly intact, good L5/S1 function, no drop foot, no radicular symptoms. X-ray were ordered, obtained and reviewed today including AP and lateral of the lumbar spine which reveal no acute fracture or dislocation. Moderate degenerative disc disease at L5-S1 most pronounced. No significant listhesis. Some calcification noted within the intervertebral disc space of L4-L5 and L5-S1. ASSESSMENTLumbar radiculopathy {{Left Right* Bilater al}} hip. PLANI explained the nature of the diagnosis with the patient and its treatment options both conservative and surgical.Conservative measures were discussed at length including but not limited to physical therapy, bracing, anti-inflammatories and injection therapies. Patient will move forward with a home exercise program and a Medrol Dosepak. Will follow-up in approximately 6 weeks at our initially scheduled appointment. Will discuss right hip problem as well as lumbar radiculopathy. I explained the nature of the diagnosis with the patient and its treatment options both conservative and surgical. Vj Thornton PA-C [address], [place], [address], [facility] 07/27/2023 10:33:45 OBGyn Episode No OBEpisode recorded.
--- OUTSIDE RECORDS SUMMARY | 2024-05-07 11:35 | XMS_ITS | Continuity of Care Document ---
Author Organization [facility] ter Address [address] [place] [address]- Care Team Providers Care Lower In Supervisor Name Role Phone Nasrin Barros Primary Care Physician Encounter [facility] Date(s): 03/28/24 - 05/03/[address] [address] Attending Physician: Roland Contreras NP Admitting Physician: Roland Contreras NP Referring Physician: Roland Contreras NP Encounter Type: Pre-Outpt Allergies, Adverse Reactions, Alerts Substance Criticality Severity Reaction Reaction Severity Status codeine Respiratory arrest A ctive Imitrex loc Active Immunizations Given and Recorded Vaccine Date Status Refusal Reason RSV vaccine preF3, recombinant 01/12/23 Recorded SARS-CoV-2(COVID-19)mRNA-LNP vac([id number]) 12/26/22 Recorded influenza virus vaccine, inactivated 12/12/22 Heri rded influenza virus vaccine, inactivated 12/13/21 Heri rded [id number] 12y+ bivalent booster vax 06/10/22 Recorded SARS-CoV-2 mRNA ([id number]) vax 10/12/21 Recorded Medications Aerochamber See Instructions, [...] 0 Refills, Maintenance, 10/03/23 3:41:00 PM EDT, [facility]/pharmacy #[id number], 50, 1 puffs Inhalation 4 times a day,PRN: NEEDED FOR WHEEZING, 150, cm, 09/28/23 10:38:00 EDT, Height, 88.5, kg, 08/14/23 0:53:00 EDT, Dry Weight Start Date: 10/03/23 Status: Ordered Quantity: 18.0 Unit: each Repeat number: 1 amLODIPine 5 mg oral tablet 1 tablet, By Mouth, Daily, # 90 tablet, 1 Refills, Maintenance, 03/29/24 11:35:00 AM EST, [facility], 150, cm, 03/29/24 11:30:00 EST, Height, 88.5, kg, 08/14/23 0:53:00 EDT, Dry Weight Start Date: 03/29/24 Status: Ordered Quantity: 90.0 Unit: tablet Repeat number: 2 aspirin 81 mg oral delayed release tablet 81 mg, 1, tablet, By Mouth, Daily, # 90 tablet, Refills 3, Tot. Refills 3, Maintenance, 01/30/23 2:39:00 PM EST, [id number] Partial fill upon patient request if the prescription is for a schedule II opioid drug., 150, cm, 01/09/23 10:57:00 EDT, Height, 90,kg, 11/18/22 10:10:00 EDT, Dry Weight Start Date: 01/30/23 Status: Ordered Quantity: 90.0 Unit: tablet Repeat number: 4 atenolol 25 mg oral tablet 1, tablet, By Mouth, Daily, # 90 tablet, Refills 1, Tot. Refills 1, Maintenance, 03/29/24 11:35:00 AM EST, Route to Pharmacy Electronically, [facility], 150, cm, 03/29/24 11:30:00 EST, Height, 88.5, kg, 08/14/23 0:53:00 EDT, Dry Weight Start Date: 03/29/24 Status: Ordered Quantity: 90.0 Unit: tablet Repeat number: 2 Breo Ellipta 100 mcg-25 mcg/inh inhalation powder 0 Refills, Maintenance, 06/27/23 11:28:00 AM EDT, Partial fill upon patient request if the prescription is for a schedule II opioid drug. Start Date: 06/27/23 Status: Ordered Repeat number: 1 citalopram 40 mg oral tablet 1 tablet, By Mouth, Daily, # 90 tablet, 1 Refills, Maintenance[facility], cm, 03/29/24 11:30:00 EST, Height, 88.5, kg, 08/14/23 0:53:00 EDT, Dry Weight Start Date: 03/29/24 Status: Ordered Quantity: 90.0 Unit: tablet Repeat number: 2 clobetasol 0.05% topical ointment 0 Refills, Maintenance, 09/28/23 10:57:00 AM EDT, Partial fill upon patient request if the prescription is for a schedule II opioid drug. Start Date: 09/28/23 Status: Ordered Repeat number: 1 Co Q-10 100 mg oral capsule 1 capsule, By Mouth, Daily, NOT COVERED UNDER PART D., # 90 capsule, 3 Refills, Maintenance, 01/30/23 2:39:00 PM EST, [id number] 150, cm, 01/09/23 10:57:00 EDT, Height, [...] 3 Refills, Maintenance, 01/01/24 3:46:00 PM EDT, [facility]/pharmacy #[id number], 150, cm, 12/29/23 10:18:00 EDT, Height, 88.5, kg, 08/14/23 0:53:00 EDT, Dry Weight Start Date: 01/01/24 Status: Ordered Quantity: 90.0 Unit: tablet Repeat number: 4 Fish Oil 1000 mg oral capsule 2 capsule = 2,000 mg, By Mouth, 2 times a day, # 120 capsule, 0 Refills, Maintenance, 03/29/24 11:28:00 AM EST, Capsule, Partial fill upon patient request if the prescription is for a schedule II opioid drug. Start Date: 03/29/24 Status: Ordered Quantity: 120.0 Unit: capsule Repeat number: 1 Freestyle Lite Lancets See Instructions, # 200 [...] tablet, Refills 3, Tot. Refills 3, Maintenance, 03/29/24 11:35:00 AM EST, Route to Pharmacy Electronically, [facility], 150, cm, 03/29/24 11:30:00 EST, Height, 88.5, kg, 08/14/23 0:53:00 EDT, Dry Weight Start Date: 03/29/24 Status: Ordered Quantity: 90.0 Unit: tablet Repeat number: 4 nebulizer tubing DX:J45.909 nebulizer tubing DX:J45.909, See [...] a schedule II opioid drug. Start Date: 01/21/22 Status: Ordered Quantity: 90.0 Unit: capsule Repeat number: 1 Ozempic 2 mg/3 mL (0.25 mg or 0.5 mg dose) subcutaneous solution = 0.5 mg, Subcutaneous Injection, Every week, rotate injection sites, # 1 each, 5 Refills, Maintenance, 12/29/23 12:31:00 PM EDT, Solution, [facility]/pharmacy #[id number], Partial fill upon patient request if the prescription is for a schedule II opioid drug., 150, cm, 12/29/23 10:18:00 EDT, Height, 88.5, kg, 08/14/23 0:53:00 EDT, Dry Weight Start Date: 12/29/23 Status: Ordered Quantity: 1.0 Unit: each Repeat number: 6 PEG-3350 with Electrolytes (Eqv-GoLYTELY) oral powder for reconstitution 240 mL, By Mouth, Every 15 minutes, Split prep method 1st Half 5pm evening before, 2nd Half 6 hoursprior to procedure., # 1 each, 0 Refills, Maintenance, 04/25/24 10:40:00 AM EST, REC Powder, [facility], Partial fill upon patient request if the prescription is for a schedule II opioid drug., 240 mL By Mouth Every 15 minutes,Instr:Split prep method 1st Half 5pm evening before, 2nd Half 6hours prior to procedure., 150, cm, 03/29/24 11:30:00 EST, Height, 88.5, kg, 08/14/23 0:53:00 EDT, Dry Weight Start Date: 04/25/24 Status: Ordered Quantity: 1.0 Unit: each Repeat number: 1 rOPINIRole 0.5 mg oral tablet 1 tablet, By Mouth, Daily in AM, # 90 tablet, 1 Refills, Maintenance, 12/20/23 5:43:00 PM EDT, [id number], 150, cm, 09/28/23 10:38:00 EDT, Height, 88.5, kg, 08/14/23 0:53:00 EDT, Dry Weight Start Date: 12/20/23 Status: Ordered Quantity: 90.0 Unit: tablet Repeat number: 1 rOPINIRole 1 mg oral tablet See Instructions, 1 tablet By Mouth Daily at supper, # 90 tablet, 0 Refills, Maintenance, 03/29/24 11:36:00 AM EST, Tablet, [facility], Partial fill upon patient request if the prescriptionis for a schedule II opioid drug., 150, cm, 03/29/24 11:30:00 EST, Height, 88.5, kg, 08/14/23 0:53:00 EDT, Dry Weight Start Date: 03/29/24 Status: Ordered Quantity: 90.0 Unit: tablet Repeat number: 1 Problem List Condition Confirmation Course Effective Dates Status Health Status Informant Coronary artery disease involving [place] coronary artery of [place] heart without angina pectoris Confirmed Active Endometriosis Confirmed Active Primary hypertension Confirmed Active GERD (gastroesophageal reflux disease) Confirmed Active Hypercholesterolemia Confirmed Active Major depression Confirmed Active Migraine Confirmed Active Asthma, moderate persistent Confirmed Active Pulmonary nodule Confirmed Active Obese class I Confirmed Active HUMBERTO (obstructive sleep apnea) Confirmed Active RLS (restless legs syndrome) Confirmed Active Type 2 diabetes mellitus Confirmed Active Social History Social History Type Response Smoking Status Never (less than 100 in lifetime);Never entered on: 01/21/22 Sex Sex Representation Female (finding) Patient Care team information Care Team Personnel Name: Nasrin Barros Position: S PCO Associate Professional Member Role: PCP Address: [address] [place] [address] Telecom: Care Team Related Persons Name: ROLAND DEL REAL Name: NEW PACKER Insurance Providers Guarantor name: FELISA DEL REAL Health Plan Information #: 1 Payer: MEDICARE PART B OUTPT Member Number: [id number] Policy Number: NA Group Number: NA Health Plan Information #: 2 Payer: MEDEX Member Number: [id number] Policy Number: NA Group Number: NA
--- OUTSIDE RECORDS SUMMARY | 2024-05-07 11:35 | XMS_ITS | Continuity of Care Document ---
Author Organization [facility] Address [address] [place] [address]- Care Team Providers Care Tint Layer Name Role Phone Nasrin Barros Primary Care Physician Encounter [facility] Date(s): 03/31/24 - 04/30/24 [facility] [address] [place] [address]- Attending Physician: AdmMando portillo Admitting Physician: AdmtrMando Referring Physician: Admtr, Ar8 Encounter Type: Triage Allergies, Adverse Reactions, Alerts Substance Criticality Severity Reaction Reaction Severity Status codeine Respiratory arrest A ctive Imitrex loc Active Immunizations Given and Recorded Vaccine Date Status Refusal Reason RSV vaccine preF3, recombinant 01/12/23 Recorded SARS-CoV-2(COVID-19)mRNA-LNP vac([id number]) 12/26/22 Recorded influenza virus vaccine, inactivated 12/12/22 Heri rded influenza virus vaccine, inactivated 12/13/21 Heri rded [id number] 12y+ bivalent booster vax 06/10/22 Recorded SARS-CoV-2 mRNA ([id number]) vax 10/12/21 Recorded Medications Aerochamber See Instructions, [...] 0 Refills, Maintenance, 10/03/23 3:41:00 PM EDT, [facility]/pharmacy #[id number], 50, 1 puffs Inhalation 4 times a day,PRN: NEEDED FOR WHEEZING, 150, cm, 09/28/23 10:38:00 EDT, Height, 88.5, kg, 08/14/23 0:53:00 EDT, Dry Weight Start Date: 10/03/23 Status: Ordered Quantity: 18.0 Unit: each Repeat number: 1 amLODIPine 5 mg oral tablet 1 tablet, By Mouth, Daily, # 90 tablet, 1 Refills, Maintenance, 03/29/24 11:35:00 AM EST, [facility], 150, cm, 03/29/24 11:30:00 EST, Height, 88.5, kg, 08/14/23 0:53:00 EDT, Dry Weight Start Date: 03/29/24 Status: Ordered Quantity: 90.0 Unit: tablet Repeat number: 2 aspirin 81 mg oral delayed release tablet 81 mg, 1, tablet, By Mouth, Daily, # 90 tablet, Refills 3, Tot. Refills 3, Maintenance, 01/30/23 2:39:00 PM EST, Route to Pharmacy Electronically, [facility]/pharmacy #[id number], Partial fill upon patient request if [...] 11:35:00 AM EST, Route to Pharmacy Electronically, [facility], 150, cm, 03/29/24 11:30:00 [...] tablet, 1 Refills, Maintenance, 03/29/24 11:37:00 AM EST, [facility], 150, cm, 03/29/24 11:30:00 [...] 3 Refills, Maintenance, 01/30/23 2:39:00 PM EST, [facility]/pharmacy #[id number], 150, cm, 01/09/23 10:57:00 EDT, Height, [...] 3 Refills, Maintenance, 01/01/24 3:46:00 PM EDT, [facility]/pharmacy #[id number], 150, cm, 12/29/23 10:18:00 EDT, Height, [...] 11:35:00 AM EST, Route to Pharmacy Electronically, [facility], 150, cm, 03/29/24 11:30:00 [...] Refills, Maintenance, 12/29/23 12:31:00 PM EDT, Solution, [facility]/pharmacy #[id number], Partial fill upon patient request if [...] Maintenance, 04/25/24 10:40:00 AM EST, REC Powder, [facility], Partial fill upon patient request if the [...] 1 Refills, Maintenance, 12/20/23 5:43:00 PM EDT, [facility], 150, cm, 09/28/23 10:38:00 EDT, Height, 88.5, kg, 08/14/23 0:53:00 EDT, Dry Weight Start Date: 12/20/23 Status: Ordered Quantity: 90.0 Unit: tablet Repeat number: 1 rOPINIRole 1 mg oral tablet See Instructions, 1 tablet By Mouth Daily at supper, # 90 tablet, 0 Refills, Maintenance, 03/29/24 11:36:00 AM EST, Tablet, [facility], Partial fill upon patient request if the prescriptionis for a schedule II opioid drug., 150, cm, 03/29/24 11:30:00 EST, Height, 88.5, kg, 08/14/23 0:53:00 EDT, Dry Weight Start Date: 03/29/24 Status: Ordered Quantity: 90.0 Unit: tablet Repeat number: 1 Problem List Condition Confirmation Course Effective Dates Status Health Status Informant Coronary artery disease involving [place] coronary artery of [place] heart without angina pectoris Confirmed Active Endometriosis [...] Care Team Personnel Name: Nasrin Barros Position: [facility] PCO Associate Professional Member Role: PCP Address: [address] [place] [address] [place] [address]- Telecom: Care Team Related Persons Name: ROLAND DEL REAL Name: NEW PACKER Insurance Providers Guarantor name: FELISA DEL REAL Health Plan Information #: 1 Payer: MEDICARE PART B OUTPT Member Number: NA Policy Number: NA Group Number: NA Health Plan Information #: 2 Payer: MEDEX Member Number: NA Policy Number: NA Group Number: NA
== END 2024-05-07 11:28 | disposition home or self-care (01) ==
PROVIDERS: PCP Physician Assistant Medical; Visit Provider Nurse Practitioner Family
DX: J45.909 Unspecified asthma, uncomplicated (principal); R06.09 Other forms of dyspnea; J98.4 Other disorders of lung; Z91.09 Other allergy status, other than to drugs and biological substances; R91.8 Other nonspecific abnormal finding of lung field
CPT/HCPCS: 99214

== ENCOUNTER → 2024-05-07 10:35 | Outpatient (BNVA) | payer MEDICARE, SELFPAY | PROVIDERS: PCP Physician Assistant Medical; Visit Provider Nurse Practitioner Family | DX: J45.909 Unspecified asthma, uncomplicated (principal); R06.00 Dyspnea, unspecified; G47.33 Obstructive sleep apnea (adult) (pediatric); R91.8 Other nonspecific abnormal finding of lung field; R06.09 Other forms of dyspnea; J98.4 Other disorders of lung; Z91.09 Other allergy status, other than to drugs and biological substances; Z99.89 Dependence on other enabling machines and devices | CPT/HCPCS: 99212 ==

== ENCOUNTER 2024-09-26 07:41 | Outpatient (REF) | payer MEDICARE, SELFPAY ==
--- OUTSIDE RECORDS SUMMARY | 2024-09-21 23:59 | XMS_ITS | Continuity of Care Document ---
Author Organization [facility] Address [address] [place] [address]- Care Team Providers Care Retail Pricing Coordinator Name Role Phone Nasrin Barros Primary Care Physician [place] [facility] [place] 08/22/24 - 09/21/24 [facility] [address] [place] [address] Attending Physician: Mando Smith Admitting Physician: AdmtrMando Referring Physician: Admtr ArRagini Encounter Type: Triage Allergies, Adverse Reactions, Alerts Substance Criticality Severity Reaction Reaction Severity Status codeine Respiratory arrest A ctive Imitrex loc Active statins Lower Extremity Cramps Active Immunizations Given and Recorded Vaccine Date Status Refusal Reason tetanus/diphtheria/pertussis, acel(Tdap) 06/25/24 Recorded zoster vaccine, inactivated 12/18/23 Recorded zoster vaccine, inactivated 10/02/23 Recorded SARS-CoV-2(COVID-19)mRNA-LNP vac([id number]) 12/04/23 Recorded SARS-CoV-2(COVID-19)mRNA-LNP vac(cjp572) 12/26/22 Recorded influenza virus vaccine, inactivated 12/01/23 Heri rded influenza virus vaccine, inactivated 12/12/22 Heri rded influenza virus vaccine, inactivated 12/13/21 Heri rded RSV vaccine preF3, recombinant 01/12/23 Recorded [id number] 12y+ bivalent booster vax 06/10/22 Recorded SARS-CoV-2 mRNA ([id number]) vax 10/12/21 Recorded Medications acetaminophen 500 mg oral tablet 2 tablet = 1,000 mg, By Mouth, Every 8 hours, for 30 days, # 180, Physician Stop 09/21/24 11:59:00 AMEDT Start Date: 08/12/24 Stop Date: 09/21/24 Status: Ordered Quantity: 180.0 Unit: Repeat number: 1 Albuterol (Eqv-Ventolin HFA) 90 mcg/inh inhalation aerosol 2 inhalation = 180 mcg, Inhalation, Every 4 hours, PRN Wheezing/Shortness of Breath, # 18 Gm, 0 Refills, Maintenance, 10/03/23 3:41:00 PM EDT, [facility]/pharmacy #[id number], 150, cm, 09/28/23 10:38:00 EDT, Height, 88.5, kg, 08/14/23 0:53:00 EDT, Dry Weight Start Date: 10/03/23 Stop Date: 08/17/24 Status: Ordered Quantity: 18.0 Unit: g Repeat number: 1 amLODIPine 5 mg oral tablet 1 tablet, By Mouth, Daily, Hold for Systolic BP less than 115., # 90 tablet, 1 Refills, Maintenance, 07/18/24 2:31:00 PM EDT, [facility], 149.9, cm, 07/18/24 14:33:00 EDT, Height, 88.5, kg, 08/14/23 0:53:00 EDT, Dry Weight Start Date: 07/18/24 Stop Date: 01/14/25 Status: Ordered Quantity: 90.0 Unit: tablet Repeat number: 2 Indications: Essential (primary) hypertension; anastrozole 1 mg oral tablet 1 tablet = 1 mg, By Mouth, Daily, # 30 tablet, 3 Refills, Maintenance, 09/09/24 11:05:00 AM EDT, Tablet, [facility], Partial fill upon patient request if the prescription is for a schedule II opioid drug., 149.5, cm, 09/09/24 9:35:00 EDT, Height, 76.5, kg, 09/09/24 9:35:00 EDT, Dry Weight Start Date: 09/09/24 Status: Ordered Quantity: 30.0 Unit: tablet Repeat number: 4 Aquaphor Healing Topically, 4 times a day, 0 Refills, Maintenance, 08/12/24 10:50:00 AM EDT, Partial fill upon patient request if the prescription is for a schedule II opioid drug. Start Date: 08/12/24 Status: Ordered Repeat number: 1 aspirin 81 mg oral delayed release tablet 81 mg, 1, tablet, By Mouth, Daily, # 90 tablet, Refills 3, Tot. Refills 3, Maintenance, 08/22/24 11:15:00 AM EDT, Route to Pharmacy Electronically, [facility], 150, cm, 08/22/24 10:36:00 EDT, Height, 77.2, kg, 08/13/24 1:54:00 EDT, Dry Weight Start Date: 08/22/24 Stop Date: 08/17/25 Status: Ordered Quantity: 90.0 Unit: tablet Repeat number: 4 Indications: Atherosclerotic heart disease of [place] coronary artery without angina pectoris; atenolol 25 mg oral tablet 1, tablet, By Mouth, Daily, # 90 tablet, Refills 1, Tot. Refills 1, Maintenance, 07/18/24 2:35:00 PM EDT, Route to Pharmacy Electronically, [facility], 149.9, cm, 07/18/24 14:33:00 EDT, Height, 88.5, kg, 08/14/23 0:53:00 EDT, Dry Weight Start Date: 07/18/24 Stop Date: 01/14/25 Status: Ordered Quantity: 90.0 Unit: tablet Repeat number: 2 Indications: Essential (primary) hypertension; Breo Ellipta 100 mcg-25 mcg/inh inhalation powder 0 Refills, Maintenance, 06/27/23 11:28:00 AM EDT, Partial fill upon patient request if the prescription is for a schedule II opioid drug. Start Date: 06/27/23 Status: Ordered Repeat number: 1 Centrum Silver Women's oral tablet 1 tablet, By Mouth, Daily, 0 Refills, Maintenance, 08/12/24 10:49:00 AM EDT, Partial fill upon patient request if the prescription is for a schedule II opioid drug. Start Date: 08/12/24 Status: Ordered Repeat number: 1 citalopram 40 mg oral tablet 1 tablet, By Mouth, Daily, # 90 tablet, 2 Refills, Maintenance, 07/18/24 2:28:00 PM EDT, [facility], 149.9, cm, 07/18/24 13:35:00 EDT, Height, 88.5, kg, 08/14/23 0:53:00 EDT, Dry Weight Start Date: 07/18/24 Stop Date: 04/14/25 Status: Ordered Quantity: 90.0 Unit: tablet Repeat number: 3 Indications: Major depressive disorder, single episode, mild; Co Q-10 100 mg oral capsule 1 capsule, By Mouth, Daily, NOT COVERED UNDER PART D., # 90 capsule, 3 Refills, Maintenance, 01/30/23 2:39:00 PM EST, [facility]/pharmacy #[id number], 150, cm, 01/09/23 10:57:00 EDT, Height, 90, kg, 11/18/22 10:10:00 EDT, Dry Weight Start Date: 01/30/23 Status: Ordered Quantity: 90.0 Unit: capsule Repeat number: 4 ezetimibe 10 mg oral tablet 1 tablet, By Mouth, Daily, # 90 tablet, 2 Refills, Maintenance, 07/26/24 8:51:00 AM EDT, [facility], 149.9, cm, 07/26/24 8:18:00 EDT, Height, 88.5, kg, 08/14/23 0:53:00 EDT, Dry Weight Start Date: 07/26/24 Stop Date: 04/22/25 Status: Ordered Quantity: 90.0 Unit: tablet Repeat number: 3 Indications: Pure hyperglyceridemia; Fish Oil 1000 mg oral capsule 2 capsule = 2,000 mg, By Mouth, 2 times a day, # 360 capsule, 4 Refills, Maintenance, 07/26/24 8:52:00 AM EDT, Capsule, [facility], 149.9, cm, 07/26/24 8:18:00 EDT, Height, 88.5, kg, 08/14/23 0:53:00 EDT, Dry Weight Start Date: 07/26/24 Stop Date: 10/19/25 Status: Ordered Quantity: 360.0 Unit: capsule Repeat number: 5 Indications: Pure hyperglyceridemia; gabapentin 100 mg oral capsule 200 mg, 2, capsule, By Mouth, 3 times a day, PRN, # 90 capsule, Refills 1, Maintenance, Pain , Moderate, 08/22/24 11:17:00 AM EDT, Partial fill upon patient request if the prescription is for a schedule II opioid drug. Start Date: 08/22/24 Stop Date: 09/21/24 Status: Ordered Quantity: 90.0 Unit: capsule Repeat number: 1 hydrochlorothiazide 25 mg oral tablet 1, tablet, By Mouth, Daily, # 90 tablet, Refills 3, Tot. Refills 3, Maintenance, 03/29/24 11:35:00 AM EST, Route to Pharmacy Electronically, [facility], 150, cm, 03/29/24 11:30:00 EST, Height, 88.5, kg, 08/14/23 0:53:00 EDT, Dry Weight Start Date: 03/29/24 Status: Ordered Quantity: 90.0 Unit: tablet Repeat number: 4 melatonin 5 mg oral tablet 1 tablet = 5 mg, By Mouth, Daily at bedtime, PRN for insomnia, # 60 tablet, 0 Refills, Maintenance,08/12/24 10:49:00 AM EDT, Tablet, Partial fill upon patient request if the prescription is for a schedule II opioid drug. Start Date: 08/12/24 Status: Ordered Quantity: 60.0 Unit: tablet Repeat number: 1 Ozempic 2 mg/3 mL (0.25 mg or 0.5 mg dose) subcutaneous solution = 0.5 mg, Subcutaneous Injection, Every week, rotate injection sites, # 4 each, 5 Refills, Maintenance, 07/18/24 2:25:00 PM EDT, Solution, [facility], 149.9, cm, 07/18/24 13:35:00 EDT, Height, 88.5, kg, 08/14/23 0:53:00 EDT, Dry Weight Start Date: 07/18/24 Stop Date: 01/14/25 Status: Ordered Quantity: 4.0 Unit: each Repeat number: 6 Indications: Other obesity due to excess calories; Prediabetes; rOPINIRole 0.5 mg oral tablet 1 tablet = 0.5 mg, By Mouth, Daily in AM, # 90 tablet, 2 Refills, Maintenance, 07/18/24 2:42:00 PM EDT, Tablet, [facility], 149.9, cm, 07/18/24 14:33:00 EDT, Height, 88.5, kg, 08/14/23 0:53:00 EDT, Dry Weight Start Date: 07/18/24 Stop Date: 04/14/25 Status: Ordered Quantity: 90.0 Unit: tablet Repeat number: 3 Indications: Restless legs syndrome; rOPINIRole 1 mg oral tablet 1 tablet = 1 mg, By Mouth, Daily at bedtime, # 90 tablet, 2 Refills, Maintenance, 07/18/24 2:44:00 PMEDT, Tablet, [facility], 149.9, cm, 07/18/24 14:33:00 EDT, Height, 88.5, kg, 08/14/23 0:53:00 EDT, Dry Weight Start Date: 07/18/24 Stop Date: 04/14/25 Status: Ordered Quantity: 90.0 Unit: tablet Repeat number: 3 Indications: Restless legs syndrome; Problem List Condition Confirmation Course Effective Dates Status Health Status Informant Seroma of breast Confirmed Active Cellulitis of right breast Confirmed Active Coronary artery disease involving [place] coronary artery of [place] heart without angina pectoris Confirmed Active Endometriosis Confirmed Active Primary hypertension Confirmed Active Abnormal CBC Confirmed Active History of ductal carcinoma in situ of breast Confirmed Active History of lumpectomy Confirmed Active Hypertriglyceridemia Confirmed Active Intraductal papilloma of left breast Confirmed Active Migraine Confirmed Active Mild intermittent reactive airway disease Confirmed Active Mild major depression Confirmed Active Pulmonary nodule Confirmed Active Obese class I Confirmed Active Obesity due to excess calories Confirmed Active RLS (restless legs syndrome) Confirmed Active Social History Social History Type Response Smoking Status Never (less than 100 in lifetime) entered on: 07/02/24 Sex Sex Representation Female (finding) Patient Care team information Care Team Personnel Name: Briana Ma RN Position: S RN Member Role: Primary Care Nurse Name: Aniyah Shanks RN Position: S RN Member Role: Primary Care Nurse Name: Nasrin Barros Position: S PCO Associate Professional Member Role: PCP Address: [address] [place] [address] Telecom: Name: Clementina Ashford LPN Position: S RN Member Role: Primary Care Nurse Name: Violeta Jackson RN Position: S RN Member Role: Primary Care Nurse Care Team Related Persons Name: ROLAND DEL REAL Name: NEW PACKER Insurance Providers Guarantor name: FELISA DEL REAL [employer] Plan Information #: 1 Payer: MEDICARE B Payer Identifier: KEEGAN Member Number: [id number] Group Number: [id number] Subscriber Identifier: [id number] Relationship to Subscriber: self Coverage Type: NA Coverage Verification Date: NA Telecom: NA Address: [facility] Information #: 2 Payer: MEDEX SECONDARY ONLY Payer Identifier: KEEGAN Member Number: [id number] Group Number: [id number] Subscriber Identifier: [id number] Relationship to Subscriber: self Coverage Type: Medicare Other Coverage Verification Date: NA Telecom: NA Address:
--- NOTE | ~2024-09-26 | CT_ITS ---
EXAMINATION: CT CHEST WITHOUT IV CONTRAST INDICATION: R91.8 - Other nonspecific abnormal finding of lung field COMPARISON: Comparison is made with the prior examination dated 03/11/2024. TECHNIQUE: Helical CT scan of the chest was performed without intravenous contrast. Coronal and sagittal reformatted images were generated and reviewed. This CT exam was performed with one or more of the following dose reduction techniques: automated exposure control, adjustment of the mA and/or kV according to patient size, use of iterative reconstruction technique. DLP: 138 mGy-cm CHEST: THYROID: The thyroid is unremarkable. LUNGS: Again seen is a 3 mm nodule in the left lower lobe (series 4, image 80). There is linear scarring at the left lung base. The lungs are otherwise clear. MEDIASTINUM: There is no mediastinal lymphadenopathy. BIJAN: Evaluation of the hilar regions is limited by lack of intravenous contrast material. CARDIOVASCULATURE: The heart is normal in size. There is no pericardial effusion. The thoracic aorta is normal in caliber. DEGREE OF CORONARY CALCIFICATION: mild PLEURA: There is no pleural effusion. No pneumothorax. MAIN AIRWAYS: The mainstem bronchi and proximal branches are patent. AXILLA: There is no axillary lymphadenopathy. BONES AND SOFT TISSUES: There are postsurgical changes in both breasts. There is degenerative disc disease of the spine. UPPER ABDOMEN: The visualized portions of the liver, spleen, and adrenals have an unremarkable unenhanced appearance. CT/CT chest wo IV con IMPRESSION: Stable 3 mm left lower lobe nodule. Electronically signed by: Tim Levin MD 09/26/2024 09:13 AM EDT
== END 2024-09-26 07:42 | disposition home or self-care (01) ==
LOC: HO.CT 07:41
PROVIDERS: PCP Physician Assistant Medical; Visit Provider Nurse Practitioner Family
DX: R91.8 Other nonspecific abnormal finding of lung field (principal)
CPT/HCPCS: 71250

== ENCOUNTER → 2024-09-26 07:43 | Outpatient (BNV) | payer MEDICARE, SELFPAY | PROVIDERS: PCP Physician Assistant Medical; Visit Provider Radiology Diagnostic Radiology | DX: R91.1 Solitary pulmonary nodule (principal) | CPT/HCPCS: 71250 ==

== ENCOUNTER 2024-11-05 10:43 | Outpatient (AMB) | payer MEDICARE, SELFPAY ==
--- OUTSIDE RECORDS SUMMARY | 2024-10-31 23:59 | XMS_ITS | Continuity of Care Document ---
Author Organization [facility] Address [address] [place] [address]- Care Team Providers Care Ethyl Blender Name Role Phone Nasrin Barros Primary Care Physician Encounter [facility] [place] Date(s): 10/01/24 - 10/31/24 [facility] [address] [place] [address]- Attending Physician: Mando Smith Admitting Physician: AdmMando portillo Referring Physician: AdmtrMando Encounter Type: Triage Allergies, Adverse Reactions, Alerts Substance Criticality Severity Reaction Reaction Severity Status codeine Respiratory arrest A ctive Imitrex loc Active statins Lower Extremity Cramps Active Immunizations Given and Recorded Vaccine Date Status Refusal Reason tetanus/diphtheria/pertussis, acel(Tdap) 06/25/24 Recorded zoster vaccine, inactivated 12/18/23 Recorded zoster vaccine, inactivated 10/02/23 Recorded SARS-CoV-2(COVID-19)mRNA-LNP vac(dgq296) 12/04/23 Recorded SARS-CoV-2(COVID-19)mRNA-LNP vac(dft555) 12/26/22 Recorded influenza virus vaccine, inactivated 12/01/23 Heri rded influenza virus vaccine, inactivated 12/12/22 Heri rded influenza virus vaccine, inactivated 12/13/21 Heri rded RSV vaccine preF3, recombinant 01/12/23 Recorded [id number] 12y+ bivalent booster vax 06/10/22 Recorded SARS-CoV-2 mRNA ([id number]) vax 10/12/21 Recorded Medications acetaminophen 500 mg [...] 0 Refills, Maintenance, 10/03/23 3:41:00 PM EDT, [facility]/pharmacy #[id number], 150, cm, 09/28/23 10:38:00 EDT, Height, 88.5, kg, 08/14/23 0:53:00 EDT, Dry Weight Start Date: 10/03/23 Stop Date: 08/17/24 Status: Ordered Quantity: 18.0 Unit: g Repeat number: 1 amLODIPine 5 mg oral tablet 1 tablet, By Mouth, Daily, Hold for Systolic BP less than 115., # 90 tablet, 1 Refills, Maintenance, 07/18/24 2:31:00 PM EDT, [facility], 149.9, cm, 07/18/24 14:33:00 EDT, Height, 88.5, kg, 08/14/23 0:53:00 EDT, Dry Weight Start Date: 07/18/24 Stop Date: 01/14/25 Status: Ordered Quantity: 90.0 Unit: tablet Repeat number: 2 Indications: Essential (primary) hypertension; anastrozole 1 mg oral tablet 1 tablet = 1 mg, By Mouth, Daily, # 30 tablet, 3 Refills, Maintenance, 09/09/24 11:05:00 AM EDT, Tablet, [facility], Partial fill upon patient [...] 11:15:00 AM EDT, Route to Pharmacy Electronically, [facility], 150, cm, 08/22/24 10:36:00 EDT, Height, 77.2, kg, 08/13/24 1:54:00 EDT, Dry Weight Start Date: 08/22/24 Stop Date: 08/17/25 Status: Ordered Quantity: 90.0 Unit: tablet Repeat number: 4 Indications: Atherosclerotic heart disease of [place] coronary artery without angina pectoris; atenolol 25 mg oral tablet 1, tablet, By Mouth, Daily, # 90 tablet, Refills 1, Tot. Refills 1, Maintenance, 07/18/24 2:35:00 PM EDT, Route to Pharmacy Electronically, [facility], 149.9, cm, 07/18/24 14:33:00 EDT, [...] 2 Refills, Maintenance, 07/18/24 2:28:00 PM EDT, [facility], 149.9, cm, 07/18/24 13:35:00 EDT, Height, 88.5, kg, 08/14/23 0:53:00 EDT, Dry Weight Start Date: 07/18/24 Stop Date: 04/14/25 Status: Ordered Quantity: 90.0 Unit: tablet Repeat number: 3 Indications: Major depressive disorder, single episode, mild; Co Q-10 100 mg oral capsule 1 capsule, By Mouth, Daily, NOT COVERED UNDER PART D., # 90 capsule, 3 Refills, Maintenance, 01/30/23 2:39:00 PM EST, [facility]/pharmacy #[id number], 150, cm, 01/09/23 10:57:00 EDT, Height, 90, kg, 11/18/22 10:10:00 EDT, Dry Weight Start Date: 01/30/23 Status: Ordered Quantity: 90.0 Unit: capsule Repeat number: 4 ezetimibe 10 mg oral tablet 1 tablet, By Mouth, Daily, # 90 tablet, 2 Refills, Maintenance, 07/26/24 8:51:00 AM EDT, [facility], 149.9, cm, 07/26/24 8:18:00 EDT, Height, 88.5, kg, 08/14/23 0:53:00 EDT, Dry Weight Start Date: 07/26/24 Stop Date: 04/22/25 Status: Ordered Quantity: 90.0 Unit: tablet Repeat number: 3 Indications: Pure hyperglyceridemia; Fish Oil 1000 mg oral capsule 2 capsule = 2,000 mg, By Mouth, 2 times a day, # 360 capsule, 4 Refills, Maintenance, 07/26/24 8:52:00 AM EDT, Capsule, [facility], 149.9, cm, 07/26/24 8:18:00 EDT, [...] 11:35:00 AM EST, Route to Pharmacy Electronically, [facility], 150, cm, 03/29/24 11:30:00 [...] Refills, Maintenance, 07/18/24 2:25:00 PM EDT, Solution, [facility], 149.9, cm, 07/18/24 13:35:00 EDT, [...] Refills, Maintenance, 07/18/24 2:42:00 PM EDT, Tablet, [facility], 149.9, cm, 07/18/24 14:33:00 EDT, Height, 88.5, kg, 08/14/23 0:53:00 EDT, Dry Weight Start Date: 07/18/24 Stop Date: 04/14/25 Status: Ordered Quantity: 90.0 Unit: tablet Repeat number: 3 Indications: Restless legs syndrome; rOPINIRole 1 mg oral tablet 1 tablet = 1 mg, By Mouth, Daily at bedtime, # 90 tablet, 2 Refills, Maintenance, 07/18/24 2:44:00 PMEDT, Tablet, [facility], 149.9, cm, 07/18/24 14:33:00 EDT, Height, 88.5, kg, 08/14/23 0:53:00 EDT, Dry Weight Start Date: 07/18/24 Stop Date: 04/14/25 Status: Ordered Quantity: 90.0 Unit: tablet Repeat number: 3 Indications: Restless legs syndrome; Problem List Condition Confirmation Course Effective Dates Status Health Status Informant Seroma of breast Confirmed Active Cellulitis of right breast Confirmed Active Coronary artery disease involving [place] coronary artery of [place] heart without angina pectoris Confirmed Active Endometriosis [...] PCO Associate Professional Member Role: PCP Address: [facility] - [address] Telecom: Name: Clementina Ashford LPN Position: S RN Member Role: Primary Care Nurse Name: Violeta Jackson RN Position: S RN Member Role: Primary Care Nurse Care Team Related Persons Name: ROLAND DEL REAL Name: NEW PACKER Insurance Providers Guarantor name: FELISA DEL REAL [facility] Plan Information #: 1 Payer: MEDICARE B Payer Identifier: NA Member Number: [id number] Group Number: [id number] Subscriber Identifier: [id number] Relationship to Subscriber: self Coverage Type: NA Coverage Verification Date: KEEGAN Telecom: Address: Health Plan Information #: 2 Payer: MEDEX SECONDARY ONLY Payer Identifier: KEEGAN Member Number: [id number] Group Number: [id number] Subscriber Identifier: [id number] Relationship to Subscriber: self Coverage Type: Medicare Other Coverage Verification Date: KEEGAN Telecom: Address:
--- NOTE | 2024-11-05 10:47 | A.OFFVIS_ITS ---
Vital Signs 11/05/24 10:48 Height 4 ft 11 in Weight 165 lb 6 oz BMI 33.4 BP 130/88 Blood Pressure Location Rt brachial Position Sitting Pulse 67 Pulse Source Pulse Oximeter Pulse Oximetry (%) 95 Oxygen Delivery Method Room Air Intake Visit Reasons: Dyspnea Allergies codeine Allergy (Severe, Verified 11/05/24 10:51) trouble breathing Imitrex Allergy (Severe, Uncoded 11/05/24 10:51) Anaphylaxis HPI HPI Dyspnea: Details: Lucy is a pleasant 69 year old female, never smoker, with underlying asthma, pulmonary nodules, GERD, HUMBERTO on CPAP through [facility], hypertension and coronary artery disease. Since the last visit, patient has undergone a bilateral lumpectomy and radiation for breast cancer through [facility]. She denies any visits to urgent care or hospitalizations related to respiratory distress since the last visit. She reports good control of respiratory symptoms with the use of Breo, rarely requiring albuterol MDI. She notes working towards weight loss with the use of Ozempic as well as engaging in physical acitivty at the [facility] 3-5 times per week. Today she presents to review Chest CT results. COUNT INCLUDES THE [facility] Surgical History (Updated 01/02/24 @ 10:55 by Meche Chowdhury) Hx of laparoscopy Hx of cholecystectomy Hx of appendectomy Hx of tonsillectomy Family History (Updated 01/02/24 @ 11:01 by Meche Chowdhury) Mother Breast CA Diabetes mellitus HTN (hypertension) Parkinson disease Father Skin cancer Sister Arthritis Atrial fibrillation Social History Household Members: Family Alcohol intake: never Patient Tobacco Use Status: Never used Tobacco Review of Systems Const Denies chills, Denies excessive sweating, Denies fever(s), Denies headache(s) and Denies night sweats Eyes Denies dry eyes, Denies irritation and Denies itchy eyes ENT Reports Normal hearing present, Denies headache(s), Denies nasal congestion, Denies nasal discharge, Denies post nasal drip and Denies sore throat Card Denies chest pain, Denies chest pain at rest, Denies chest pain with activity, Denies claudication, Denies leg edema, Denies dyspnea, Denies dyspnea on exertion, Denies orthopnea and Denies paroxysmal nocturnal dyspnea Resp Denies chest congestion, Denies cough, Denies excessive phlegm production, Denies pain on inspiration, Denies pain with cough, Denies dyspnea, Denies dyspnea on exertion, Denies stridor and Denies wheezing Musc Denies myalgias Neuro Reports Normal hearing present and Denies headache(s) Endo Denies excessive sweating Berny/Lymph Denies lymphadenopathy Aller/Immun Denies itchy eyes, Denies seasonal rhinorrhea and Denies wheezing Physical Exam Vital Signs: Last Vital Signs Pulse 67 11/05/24 10:48 BP 130/88 11/05/24 10:48 Pulse Ox 95 11/05/24 10:48 Oxygen Delivery Method Room Air 11/05/24 10:48 BMI result Body Mass Index 33.4 Const General: cooperative, healthy appearing, comfortable, no acute distress, well developed and alert Nutritional Appearance: obese Orientation/consciousness: patient oriented x3 Limitations: no limitations HEENT Head: Yes normal to inspection, Yes normocephalic and Yes atraumatic Ears: hearing grossly normal bilaterally and external ears normal Eyes General: appearance normal, both eyes and all related structures Eyelids: Yes eyelids normal Sclerae: sclerae normal EOM: EOMs intact bilaterally Neck Neck: Yes normal visual inspection and Yes no lymphadenopathy Lymphatic: no lymphadenopathy noted Chest Chest palpation & inspection: normal inspection of the chest Resp Effort & Inspection: normal respiratory effort, able to speak in complete sentences, no audible wheezes, no cough, no stridor, not tachypneic, no tripod positioning and no use of accessory muscles Auscultation: clear to auscultation bilaterally Cardio Jugular venous distension: no JVD Rate: regular rate Rhythm: regular rhythm Skin Other: warm, dry General skin exam: no rashes or lesions noted Neuro General: patient oriented x3 Cranial nerves: Yes Normal hearing present Cognition (Neuro): normal cognition Gait exam (Neuro): Normal gait present Extrem General: Yes normal to inspection, Yes capillary refill normal, Yes no clubbing, cyanosis or edema and Yes no pedal edema Psych Appearance: grossly normal and well kempt Speech and movement: Normal speech and movement present and Clear speech present Affect: normal affect Attitude: cooperative Thought process: Normal thought process present Thought content: Normal thought content present Insight: Good insight present (Psych) Judgement: Good judgement present (Psych) Results Reviewed Results Reviewed: [address] [address] [address] Scan Report Signed Patient: Lucy Lindquist MR#: [id number] : 1955 Acct:[id number] Age/Sex: 69 / F ADM Date: 09/26/24 Loc: HO.CT Attending Dr: Arlene Marques NP Ordering Physician: Arlene Marques NP Date of Service: 09/26/24 Procedure(s): CT chest wo IV con Accession Number(s): [id number] cc: Nasrin Bajwa; Arlene Marques NP~ Report Number: [id number]: Total DLP = 138.00 mGy-cm EXAMINATION: CT CHEST WITHOUT IV CONTRAST INDICATION: R91.8 - Other nonspecific abnormal finding of lung field COMPARISON: Comparison is made with the prior examination dated 03/11/2024. TECHNIQUE: Helical CT scan of the chest was performed without intravenous contrast. Coronal and sagittal reformatted images were generated and reviewed. This CT exam was performed with one or more of the following dose reduction techniques: automated exposure control, adjustment of the mA and/or kV according to patient size, use of iterative reconstruction technique. DLP: 138 mGy-cm CHEST: THYROID: The thyroid is unremarkable. LUNGS: Again seen is a 3 mm nodule in the left lower lobe (series 4, image 80). There is linear scarring at the left lung base. The lungs are otherwise clear. MEDIASTINUM: There is no mediastinal lymphadenopathy. BIJAN: Evaluation of the hilar regions is limited by lack of intravenous contrast material. CARDIOVASCULATURE: The heart is normal in size. There is no pericardial effusion. The thoracic aorta is normal in caliber. DEGREE OF CORONARY CALCIFICATION: mild PLEURA: There is no pleural effusion. No pneumothorax. MAIN AIRWAYS: The mainstem bronchi and proximal branches are patent. AXILLA: There is no axillary lymphadenopathy. BONES AND SOFT TISSUES: There are postsurgical changes in both breasts. There is degenerative disc disease of the spine. UPPER ABDOMEN: The visualized portions of the liver, spleen, and adrenals have an unremarkable unenhanced appearance. CT/CT chest wo IV con IMPRESSION: Stable 3 mm left lower lobe nodule. Electronically signed by: Tim Levin MD 09/26/2024 09:13 AM EDT RP Dictated By: Tim Levin MD Signed By: <Electronically signed by Tim Levin MD in OV> 09/26/24 0913 DD/ 0752 TD/TT: 09/26/24 0844 Welfare Director: Assessment & Plan Assessment & Plan (1) Asthma: Code(s): J45.909 - Unspecified asthma, uncomplicated Category: Medical (2) Restrictive lung disease: Code(s): J98.4 - Other disorders of lung Category: Medical (3) Environmental allergies: Code(s): Z91.09 - Other allergy status, other than to drugs and biological substances Category: Medical (4) Multiple pulmonary nodules: Code(s): R91.8 - Other nonspecific abnormal finding of lung field Category: Medical Plan Lucy reports good control of asthma on Breo and albuterol MDI, advised to continue. Will refill. Chest CT from 03/2024 revealed 4mm LLL pulmonary nodule that was present previously on chest CT 03/2023, however measured 1 mm at that time. Repeat CT chest 09/2024 revealed stable 3 mm nodule in the left lower lobe and linear scarring at the left lung base. Will repeat in one year to assess stability. All questions were answered and patient is in agreement of plan. Will follow up in 6 months or sooner if needed. Orders: Orders CT chest wo IV con 11 Months R91.8 - Other nonspecific abnormal finding of lung field Medications: Refilled 2 Breo Ellipta 100-25 mcg/dose (fluticasone furoate-vilanterol) 1 inh inhalation DAILY 60 ea 6RF NS Coding Level of Care Code Est Pt Level 4 (23439) Diagnoses Asthma J45.909 Restrictive lung disease J98.4 Environmental allergies Z91.09 Multiple pulmonary nodules R91.8
[2024-11-05 10:48] VITALS: BP 130/88; PULSE 67; O2SAT 95; BMI 33.4
== END 2024-11-05 11:25 | disposition home or self-care (01) ==
LOC: HO.HPSW 10:44
PROVIDERS: PCP Physician Assistant Medical; Visit Provider Nurse Practitioner Family
DX: J45.909 Unspecified asthma, uncomplicated (principal); J98.4 Other disorders of lung; Z91.09 Other allergy status, other than to drugs and biological substances; R91.8 Other nonspecific abnormal finding of lung field
CPT/HCPCS: 99214

== ENCOUNTER → 2024-11-05 10:43 | Outpatient (BNVA) | payer MEDICARE, SELFPAY | PROVIDERS: PCP Physician Assistant Medical; Visit Provider Nurse Practitioner Family | DX: J45.909 Unspecified asthma, uncomplicated (principal); J98.4 Other disorders of lung; Z91.09 Other allergy status, other than to drugs and biological substances; R91.8 Other nonspecific abnormal finding of lung field | CPT/HCPCS: 99212 ==

== ENCOUNTER 2025-03-05 12:45 | Outpatient (AMB) | payer MEDICARE, SELFPAY ==
--- NOTE | 2025-03-05 12:48 | MHC.OFFVIS ---
Vital Signs 03/05/25 12:50 Height 4 ft 11 in Weight 161 lb 6 oz BMI 32.6 BP 102/58 L Blood Pressure Location Rt brachial Position Sitting Pulse 85 Pulse Source Pulse Oximeter Pulse Oximetry (%) 93 Oxygen Delivery Method Room Air Intake Visit Reasons: Cough in her chest Allergies codeine Allergy (Severe, Verified 03/05/25 12:52) trouble breathing Imitrex Allergy (Severe, Uncoded 03/05/25 12:52) Anaphylaxis HPI HPI Cough in her chest: Details: Lucy is a pleasant 69 year old female, never smoker, with underlying asthma, pulmonary nodules, GERD, HUMBERTO on CPAP through [facility], HTN, CAD, and recent bilateral lumpectomy/radiation for breast cancer through [facility]. Today she presents for an acute visit presenting with a dry cough and chest tightness. Her symptoms began two days ago with a tickle in her throat, which progressed to a persistent, dry, non-productive cough and chest tightness, particularly last night. The cough is exacerbated by taking even a slightly deep breath. The patient reports a history of asthma, which has been well-controlled on Breo for months, and she typically only uses her albuterol (Ventolin) inhaler at night. Due to the current symptoms, she used her rescue inhaler twice on Monday, twice yesterday, and once this morning with significant improvement in cough. She denies wheezing or chest congestion but notes some sinus tenderness without significant nasal congestion. The patient recently learned that her neighbor, whom she saw on Monday, was diagnosed with influenza A on Monday. She denies any systemic symptoms such as body aches, chills, or fever. She reports being otherwise well for the past couple of months and maintains an exercise routine three days a week. Pulmonology History - History of asthma, generally well-controlled on Breo. - Prior asthma flare-ups are infrequent, with the last one occurring months ago. - Typically uses a Ventolin (albuterol) inhaler at night. - Possesses a home nebulizer machine HPI Comments Details: [facility] Surgical History (Updated 01/02/24 @ 10:55 by Meche Chowdhury) Hx of laparoscopy Hx of cholecystectomy Hx of appendectomy Hx of tonsillectomy Family History (Updated 01/02/24 @ 11:01 by Meche Chowdhury) Mother Breast CA Diabetes mellitus HTN (hypertension) Parkinson disease Father Skin cancer Sister Arthritis Atrial fibrillation Social History Household Members: Family Alcohol intake: never Patient Tobacco Use Status: Never used Tobacco Review of Systems Narrative Const Denies chills, Denies excessive sweating, Denies fever(s), Denies headache(s) and Denies night sweats Eyes Denies dry eyes, Denies irritation and Denies itchy eyes ENT Reports Normal hearing present, Denies headache(s), Denies nasal congestion, Denies nasal discharge, Denies post nasal drip and Denies sore throat Card Denies chest pain, Denies chest pain at rest, Denies chest pain with activity, Denies claudication, Denies leg edema, Denies orthopnea and Denies paroxysmal nocturnal dyspnea Resp Denies chest congestion, Denies excessive phlegm production, Denies pain on inspiration, Denies pain with cough, Denies stridor and Denies wheezing Musc Denies myalgias Neuro Reports Normal hearing present and Denies headache(s) Endo Denies excessive sweating Berny/Lymph Denies lymphadenopathy Aller/Immun Denies itchy eyes, Denies seasonal rhinorrhea and Denies wheezing Physical Exam Exam Exam: Vital Signs: Last Vital Signs Pulse 85 03/05/25 12:50 BP 102/58 L 03/05/25 12:50 Pulse Ox 93 03/05/25 12:50 Oxygen Delivery Method Room Air 03/05/25 12:50 BMI result Body Mass Index 32.6 Const General: cooperative, healthy appearing, comfortable, no acute distress, well developed and alert Nutritional Appearance: obese Orientation/consciousness: patient oriented x3 Limitations: no limitations HEENT Head: Yes normal to inspection, Yes normocephalic and Yes atraumatic Ears: hearing grossly normal bilaterally and external ears normal Eyes General: appearance normal, both eyes and all related structures Eyelids: Yes eyelids normal Sclerae: sclerae normal EOM: EOMs intact bilaterally Neck Neck: Yes normal visual inspection and Yes no lymphadenopathy Lymphatic: no lymphadenopathy noted Chest Chest palpation & inspection: normal inspection of the chest Resp Effort & Inspection: normal respiratory effort, able to speak in complete sentences, no audible wheezes, no cough, no stridor, not tachypneic, no tripod positioning and no use of accessory muscles Auscultation: diminished lung sounds Cardio Jugular venous distension: no JVD Rate: regular rate Rhythm: regular rhythm Skin Other: warm, dry General skin exam: no rashes or lesions noted Neuro General: patient oriented x3 Cranial nerves: Yes Normal hearing present Cognition (Neuro): normal cognition Gait exam (Neuro): Normal gait present Extrem General: Yes normal to inspection, Yes capillary refill normal, Yes no clubbing, cyanosis or edema and Yes no pedal edema Psych Appearance: grossly normal and well kempt Speech and movement: Normal speech and movement present and Clear speech present Affect: normal affect Attitude: cooperative Thought process: Normal thought process present Thought content: Normal thought content present Insight: Good insight present (Psych) Judgement: Good judgement present (Psych) Assessment & Plan Assessment & Plan (1) Asthma: Code(s): J45.909 - Unspecified asthma, uncomplicated Category: Medical (2) Restrictive lung disease: Code(s): J98.4 - Other disorders of lung Category: Medical (3) Multiple pulmonary nodules: Code(s): R91.8 - Other nonspecific abnormal finding of lung field Category: Medical Plan Discussed with the patient that her symptoms are consistent with an asthma exacerbation. Noted on examination that there was diminished air movement, although no wheezing or crackles were present. We discussed initiating albuterol nebulizer treatments twice daily at home. Advised her that if symptoms are not improving by Monday, she should contact the office, and will prescribe a course of oral prednisone. Will send a refill for her nebulizer solution to the pharmacy to ensure she has a current supply. We discussed the need for a routine follow-up appointment in the next 2-3 months and advised her to schedule this on her way out. All questions were answered and patient is in agreement of plan. Patient Instructions - Start using your home nebulizer with the albuterol solution twice a day for the next several days. - A new prescription for the nebulizer solution will be sent to your pharmacy in case your current supply has . - If your cough and chest tightness are not getting better by Monday, please call the office. - If needed, a prescription for prednisone, a steroid medication, will be called in to help reduce the inflammation. - Continue taking your daily Breo inhaler as prescribed. - Please schedule a follow-up appointment in our office for 2 to 3 months from now. Patient was informed and verbally consented to the use of an ambient scribe for clinic note documentation during this visit. Medications: Refilled albuterol sulfate 2.5 mg (3 mL) inhalation Q6H PRN 90 mL 0RF shortness of breath or wheezing J45.909 - Unspecified asthma, uncomplicated Coding Level of Care Code Est Pt Level 4 (55621) Diagnoses Asthma J45.909 Restrictive lung disease J98.4 Multiple pulmonary nodules R91.8
[2025-03-05 12:50] VITALS: BP 102/58; PULSE 85; O2SAT 93; BMI 32.6
== END 2025-03-05 13:48 | disposition home or self-care (01) ==
LOC: HO.HPSW 12:46
PROVIDERS: PCP Physician Assistant Medical; Visit Provider Nurse Practitioner Family
DX: J45.909 Unspecified asthma, uncomplicated (principal); J98.4 Other disorders of lung; R91.8 Other nonspecific abnormal finding of lung field
CPT/HCPCS: 99214

== ENCOUNTER → 2025-03-05 12:45 | Outpatient (BNVA) | payer MEDICARE, SELFPAY | PROVIDERS: PCP Physician Assistant Medical; Visit Provider Nurse Practitioner Family | DX: J45.909 Unspecified asthma, uncomplicated (principal); J98.4 Other disorders of lung; R91.8 Other nonspecific abnormal finding of lung field; R05.9 Cough, unspecified; R07.89 Other chest pain | CPT/HCPCS: 99212 ==